=== PATIENT | male | born 1995 | race Caucasian/White ===

== ENCOUNTER 2022-02-06 14:55 | Observation (INO) | payer OTHER ==
--- NOTE | 2022-02-06 15:05 | ED ---
Chest Pain HPI - General Stated Complaint: chest pain Time Seen by Provider: 02/06/22 14:55 Source: patient, EMS, RN notes reviewed Mode of arrival: EMS - History of Present Illness Initial Comments: 18-year-old male with a history of tachycardia but no prior other history of heart disease but a family history of heart disease who prior to EMS being called by one hour earlier, patient developing retrosternal chest pressure 8/10 severity with radiation to his left arm. He tried to drive himself and but ended up calling EMS. He was given 324 aspirin one nitroglycerin the pain went from 88/10-2/10 currently he is pain-free. No other complaints or modifying factors he does smoke marijuana but no tobacco. MD Complaint: chest pain - Related Data Home Medications Medication Instructions Recorded Confirmed Montelukast [Singulair] 10 mg PO DAILY 02/06/22 02/06/22 hydrOXYzine HCL [Atarax] 25 mg PO DAILY 02/06/22 02/06/22 Allergies Allergy/AdvReac Type Severity Reaction Status Date / Time No Known Allergies Allergy Verified 02/06/22 15:49 Review of Systems ROS Statement: Those systems with pertinent positive or pertinent negative responses have been documented in the HPI. ROS Other: All systems not noted in ROS Statement are negative. General Exam - General Exam Comments Initial Comments: This is a well-developed sec appearing male who is awake alert oriented 4 General appearance: alert, in no apparent distress Head exam: Present: atraumatic, normocephalic, normal inspection Eye exam: Present: normal appearance, PERRL, EOMI. Absent: scleral icterus, conjunctival injection, periorbital swelling ENT exam: Present: normal exam, mucous membranes moist Neck exam: Present: normal inspection, full ROM, other (No stridor JVD or bruits). Absent: tenderness, meningismus, lymphadenopathy Respiratory exam: Present: normal lung sounds bilaterally. Absent: respiratory distress, wheezes, rales, rhonchi, stridor Cardiovascular Exam: Present: regular rate, normal rhythm, normal heart sounds. Absent: systolic murmur, diastolic murmur, rubs, gallop, clicks GI/Abdominal exam: Present: soft, normal bowel sounds. Absent: distended, tenderness, guarding, rebound, rigid Extremities exam: Present: normal inspection, full ROM, normal capillary refill. Absent: tenderness, pedal edema, joint swelling, calf tenderness Back exam: Present: normal inspection Neurological exam: Present: alert, oriented X3, CN II-XII intact Psychiatric exam: Present: normal affect, normal mood Skin exam: Present: warm, dry, intact, normal color. Absent: rash Course Vital Signs 02/06/22 02/06/22 14:57 16:08 Temperature 98.9 F 97.9 F Pulse Rate 61 65 Respiratory 16 16 Rate Blood Pressure 137/86 128/85 O2 Sat by Pulse 98 98 Oximetry - Reevaluation(s) Reevaluation #1: 02/06/22 17:29 Patient reevaluated by me and several occasions no progression of initial complaints Chest Pain MDM - MDM I did evaluate the imaging evidence of a proximal a temperature pneumothorax. This is confirmed by radiology. I did discuss findings with patient family members also with Dr. kristie Dougherty. Patient be admitted with consultation by cardiology as well as by a medicine. I did discuss the initial case with Isabel Schmidt working with Dr. Martin. At this time we will withhold tube thoracostomy Was pt. sent in by a medical professional or institution? @ No-[by , PA, PRESS FEEDER, urgent care, hospital, or long-term] Did you speak to anyone other than the patient for history? @ Yesterday did discuss the case with the presenting paramedics-[EMS, parent, family, police, friend?] Did you review nursing and triage notes? @ Yes I agree -[agree or disagree, why?] Were old charts reviewed? @ -[outside hosp., previous admissions, EMS record, old EKG, old radiological studies, urgent care reports/EKGs, long-term records?] Differential Diagnosis? @ Chest pain including coronary artery disease and pulmonary etiologies.-[chest pain, altered mental status abdominal pain women, abdominal pain men, vaginal bleeding, weakness, fever, dyspnea, syncope, headache, dizziness, GI bleed, back pain, seizure] EKG interpreted by me (3pts min.)? @ He has interpreted by me and interpreted by me left temporal sent approximately pneumothorax-[none] X-rays interpreted by me (1pt min.)? @ -[none] CT interpreted by me (1pt min.)? @ -[none] U/S interpreted by me (1pt. min.)? @ -[none] What testing was considered but not performed? (CT, X-rays, U/S, labs)? Why? @ [CT, X-rays, U/S, labs? Why?] What meds were considered but not given? Why? @ -[none] Did you discuss the management of the patient with other professionals? @ .-[professionals i.e. Dr, PA, PRESS FEEDER, Lab, RT, Psych Nurse, Gas Brazer, Polisher Brass, Teacher, Crop Farm Helper, director of casework department? Give summary] Did you reconcile home meds? @ -[none] Was smoking cessation discussed for >3mins.? @ -[none] Was critical care preformed (if so, how long)? @ -[none] Were there social determinants of health that impacted care today? How? (Homelessness, low income, unemployed, alcoholism, drug addiction, transportation, low edu. Level, literacy, decrease access to med. care, group home, rehab)? @ -[Homelessness, low income, unemployed, alcoholism, drug addiction, transportation, low edu. Level, literacy, decrease access to med. care, group home, rehab?] Was there de-escalation of care discussed even if they declined? (Discuss DNR or withdrawal of care, Hospice)? @ -[Discuss DNR or withdrawal of care, Hospice?] What co-morbidities impacted this encounter? (DM, HTN, Smoking, COPD, CAD, Cancer, CVA, Hep., AIDS, mental health diagnosis, sleep apnea, morbid obesity)? @ -[DM, HTN, Smoking, COPD, CAD, Cancer, CVA, Hep., AIDS, mental health diagnosis, sleep apnea, morbid obesity?] Was patient admitted / discharged? @ Patient was admitted for inpatient evaluation and treatment-[hospital course] Undiagnosed new problem with uncertain prognosis? @ Spontaneous pneumothorax-[none] Drug Therapy requiring intensive monitoring for toxicity (Heparin, Nitro, Insulin, Cardizem)? @ -[none] Were any procedures done? @ -[none] Diagnosis/symptom? @ Chest pain, 10% left pneumothorax-[default] Acute, or Chronic, or Acute on Chronic? @ -[default] Uncomplicated (without systemic symptoms) or Complicated (systemic symptoms)? @ -[default] Side effects of treatment? @ -[none] Exacerbation, Progression, or Severe Exacerbation] @ -[no] Poses a threat to life or bodily function? @ Potential threat to life-[no] Disposition Clinical Impression: Chest pain, Pneumothorax on left Disposition: ADMITTED IP TO THIS HOSP Condition: Fair Referrals: Dayana Manjarrez MD [Primary Care Provider] - 1-2 days Decision Date: 02/06/22 Decision Time: 17:33
[2022-02-06 15:45] LABS: ALT 41 U/L (4-49); AST 34 U/L (17-59); African American GFR (CKD) >90 (>60 ml/min/1.73 sqM); Albumin 4.6 g/dL (3.5-5.0); Alkaline Phosphatase 47 U/L (38-126); Anion Gap 6 mmol/L; Blood Urea Nitrogen 15 mg/dL (9-20); Calcium 9.2 mg/dL (8.4-10.2); Carbon Dioxide 27 mmol/L (22-30); Chloride 106 mmol/L (98-107); Glucose 99 mg/dL (74-99); Lipase 49 U/L (23-300); Magnesium 1.9 mg/dL (1.6-2.3); Non-African American GFR(CKD) >90 (>60 ml/min/1.73 sqM); Potassium 4.2 mmol/L (3.5-5.1); Sodium 139 mmol/L (137-145); Total Bilirubin 0.4 mg/dL (0.2-1.3); Total Protein 7.4 g/dL (6.3-8.2)
--- NOTE | 2022-02-06 15:47 | XR ---
EXAMINATION TYPE: XR chest 2V DATE OF EXAM: 02/06/2022 3:39 PM COMPARISON: None TECHNIQUE: XR chest 2V Frontal and lateral views of the chest. CLINICAL INDICATION:Male, 26 years old with history of Chest Pain; FINDINGS: Lungs/Pleura: No pleural effusion or focal consolidation. Small left apical pneumothorax measuring ap proximately 10%. Pulmonary vascularity: Unremarkable. Heart/mediastinum: Cardiomediastinal silhouette is unremarkable. Musculoskeletal: No acute osseous pathology. IMPRESSION: Small left apical pneumothorax measuring approximately 10%. Findings called to and discussed with Dr. John Whitt at 3:44 PM on 02/06/2022.
[2022-02-06 15:55] LABS: Basophils % (A) 1 %; Eosinophils # (A) 0.1 k/uL (0-0.7); Eosinophils % (A) 1 %; HCT 45.1 % (39.0-53.0); HGB 16.4 gm/dL (13.0-17.5); Lymphocytes # (A) 1.1 k/uL (1.0-4.8); Lymphocytes % (A) 12 %; MCH 31.5 pg (25.0-35.0); MCHC 36.3 g/dL (31.0-37.0); MCV 86.8 fL (80.0-100.0); Mean Platelet Volume 8.3; Monocytes # (A) 0.5 k/uL (0-1.0); Monocytes % (A) 5 %; Neutrophils # (A) 7.3 k/uL (1.3-7.7); Neutrophils % (A) 80 %; Platelet Count 175 k/uL (150-450); RBC 5.19 m/uL (4.30-5.90); RDW 12.2 % (11.5-15.5); WBC 9.1 k/uL (3.8-10.6)
[2022-02-06 16:15] LABS: Prothrombin Time 10.3 sec (9.0-12.0)
[2022-02-06] MEDS ORDERED: MORPHINE SULFATE 4 MG/ML SYRINGE IV PRN ×2 (17:34→18:12)
[2022-02-06] MEDS ORDERED: NITROGLYCERIN SL TABS 0.4 MG TAB SUBLINGUAL PRN (17:34)
[2022-02-06] MEDS ORDERED: ACETAMINOPHEN TAB 325 MG TAB PO PRN (17:34)
[2022-02-06] MEDS: SODIUM CHLORIDE 0.9% 1,000 ML IV SCH (17:58)
[2022-02-07] MEDS: SODIUM CHLORIDE 0.9% 1,000 ML IV SCH (06:49)
--- NOTE | 2022-02-07 07:14 | XR ---
EXAMINATION TYPE: XR chest 2V DATE OF EXAM: 02/07/2022 6:24 AM COMPARISON: Chest radiograph from one day prior. TECHNIQUE: XR chest 2V Frontal and lateral views of the chest. CLINICAL INDICATION:Male, 26 years old with history of Progress pneumothorax; FINDINGS: Lungs/Pleura: There is no evidence of pleural effusion, focal consolidation. There remains a small l eft pneumothorax. Pulmonary vascularity: Unremarkable. Heart/mediastinum: Cardiomediastinal silhouette is unremarkable. Musculoskeletal: No acute osseous pathology. IMPRESSION: Similar left pneumothorax.
[2022-02-07 07:40] VITALS: BP 119/70; RESP 18; TEMP 98
--- NOTE | 2022-02-07 08:39 | P.CRDCN ---
History of Present Illness Consult date: 02/07/22 Chief complaint: Chest pain History of present illness: The patient is a pleasant 26-year-old gentleman with a past medical history significant for history of "tachycardia", the patient was seen by a cattle killer service in the past but he has no follow-up with the last 3 years. He presented to the hospital complaining of chest discomfort. He described the discomfort as a sharp kind of discomfort in the middle of the chest he stated that is not related to breathing. No radiation to the arms or neck or shoulders or back. No associated symptoms. He underwent further investigation including an EKG and that showed sinus rhythm. He also underwent cardiac enzymes came in to be an unremarkable. The patient underwent a chest x-ray which showed small left pneumothorax. He was seen by the pulmonary service and the decision at this point to treat the patient conservatively. He is currently chest pain-free. From a cardiovascular standpoint of view, the patient potentially can be discharged home since he has been chest pain-free and will follow-up with the patient as an outpatient. Past Medical History Additional Past Medical History / Comment(s): tachycardia History of Any Multi-Drug Resistant Organisms: None Reported Past Surgical History: No Surgical Hx Reported Past Psychological History: No Psychological Hx Reported Smoking Status: Current every day smoker Past Alcohol Use History: None Reported Past Drug Use History: Marijuana Medications and Allergies Home Medications Medication Instructions Recorded Confirmed Type Montelukast [Singulair] 10 mg PO DAILY 02/06/22 02/06/22 History hydrOXYzine HCL [Atarax] 25 mg PO DAILY 02/06/22 02/06/22 History Allergies Allergy/AdvReac Type Severity Reaction Status Date / Time No Known Allergies Allergy Verified 02/06/22 15:49 Physical Exam Vitals: Vital Signs Temp Pulse Pulse Resp BP BP Pulse Ox 02/07/22 07:00 98 F 57 L 18 119/70 95 02/07/22 03:08 98.0 F 53 L 16 104/63 96 02/06/22 22:04 98.6 F 60 17 128/79 97 02/06/22 21:00 64 16 125/78 98 02/06/22 20:00 66 16 126/84 98 02/06/22 17:38 97.8 F 80 16 155/88 98 02/06/22 16:08 97.9 F 65 16 128/85 98 02/06/22 14:57 98.9 F 61 16 137/86 98 Intake and Output 02/06/22 02/07/22 02/07/22 22:59 06:59 14:59 Other: # Voids 1 1 Weight 86.183 kg - Constitutional General appearance: no acute distress - Respiratory Respiratory: bilateral: CTA - Cardiovascular Rhythm: regular Heart sounds: normal: S1, S2 Results 02/06/22 15:08 02/06/22 15:08 Cardiac Enzymes 02/06/22 02/06/22 02/06/22 Range/Units 15:08 15:08 17:50 AST 34 (17-59) U/L Troponin I <0.012 <0.012 (0.000-0.034) ng/mL 02/06/22 Range/Units 20:32 AST (17-59) U/L Troponin I <0.012 (0.000-0.034) ng/mL Coagulation 02/06/22 Range/Units 15:08 PT 10.3 (9.0-12.0) sec APTT 23.0 (22.0-30.0) sec CBC 02/06/22 Range/Units 15:08 WBC 9.1 (3.8-10.6) k/uL RBC 5.19 (4.30-5.90) m/uL Hgb 16.4 (13.0-17.5) gm/dL Hct 45.1 (39.0-53.0) % Plt Count 175 (150-450) k/uL Comprehensive Metabolic Panel 02/06/22 Range/Units 15:08 Sodium 139 (137-145) mmol/L Potassium 4.2 (3.5-5.1) mmol/L Chloride 106 (98-107) mmol/L Carbon Dioxide 27 (22-30) mmol/L BUN 15 (9-20) mg/dL Creatinine 0.78 (0.66-1.25) mg/dL Glucose 99 (74-99) mg/dL Calcium 9.2 (8.4-10.2) mg/dL AST 34 (17-59) U/L ALT 41 (4-49) U/L Alkaline Phosphatase 47 (38-126) U/L Total Protein 7.4 (6.3-8.2) g/dL Albumin 4.6 (3.5-5.0) g/dL Current Medications Generic Name Dose Route Start Last Admin Trade Name Freq PRN Reason Stop Dose Admin Acetaminophen 650 mg 02/06/22 17:34 Acetaminophen Tab 325 Mg Tab PO Q4HR PRN Mild Pain Aspirin 325 mg 02/07/22 09:00 Aspirin 325 Mg Tab PO DAILY SHERRY Sodium Chloride 1,000 mls @ 100 mls/hr 02/06/22 17:45 02/07/22 06:49 Saline 0.9% IV 100 mls/hr .Q10H SHERRY Administration Morphine Sulfate 4 mg 02/06/22 18:12 Morphine Sulfate 4 Mg/Ml Syringe IV Q4HR PRN Chest Pain Nitroglycerin 0.4 mg 02/06/22 17:34 Nitroglycerin Sl Tabs 0.4 Mg Tab SUBLINGUAL Q5M PRN Chest Pain Intake and Output 02/06/22 02/07/22 02/07/22 22:59 06:59 14:59 Other: # Voids 1 1 Weight 86.183 kg 02/06/22 15:08 02/06/22 15:08 Assessment and Plan Assessment: Assessment Atypical/noncardiac chest pain Small left pneumothorax Plan Acute coronary event was ruled out The patient can be discharged
[2022-02-07] MEDS ORDERED: ASPIRIN 325 MG TAB PO SCH (09:00)
--- NOTE | 2022-02-07 10:17 | P.HPIM ---
History of Present Illness Please consider this note as combined H&P and discharge summary This is a pleasant 26 years old male with no significant past medical history. Presents because of chest pain Patient presents because of chest pain started yesterday going to work, it was on the left side went to the left arm and left shoulder about 9/10 felt like dull, sharp and later on something sitting on her chest, no significantly resolved about one-to/10 in severity A piece once of dyspnea with it but not currently. No coughing, No GI or urinary complaints, no nausea vomiting diarrhea, no dysuria urgency, no headache weakness numbness or dizziness. Weight but denies cigarette smoking or alcohol use Vitals are stable and patient is afebrile. Labs aren't remarkable. Chest x-ray: Left pneumothorax, 10% EKG showing normal sinus rhythm at [address]-T changes Patient currently on aspirin 325 mg on normal saline at 100 mL per hour Review of Systems Review of systems CONSTITUTIONAL: No fever, no malaise, no fatigue. HEENT: No recent visual problems or hearing problems. Denied any sore throat. CARDIOVASCULAR: No orthopnea, PND, no palpitations, no syncope. PULMONARY: No shortness of breath, no cough, no hemoptysis. GASTROINTESTINAL: No diarrhea, no nausea, no vomiting, no abdominal pain. Normoactive bowel sounds. NEUROLOGICAL: No headaches, no weakness, no numbness. HEMATOLOGICAL: Denies any bleeding or petechiae. GENITOURINARY: Denies any burning micturition, frequency, or urgency. MUSCULOSKELETAL/RHEUMATOLOGICAL: Denies any joint pain, swelling, or any muscle pain. ENDOCRINE: Denies any polyuria or polydipsia. Past Medical History Additional Past Medical History / Comment(s): tachycardia History of Any Multi-Drug Resistant Organisms: None Reported Past Surgical History: No Surgical Hx Reported Past Psychological History: No Psychological Hx Reported Smoking Status: Current every day smoker Past Alcohol Use History: None Reported Past Drug Use History: Marijuana Medications and Allergies Home Medications Medication Instructions Recorded Confirmed Type Montelukast [Singulair] 10 mg PO DAILY 02/06/22 02/06/22 History hydrOXYzine HCL [Atarax] 25 mg PO DAILY 02/06/22 02/06/22 History Acetaminophen Tab [Tylenol] 650 mg PO Q4HR PRN tab 02/07/22 Rx Allergies Allergy/AdvReac Type Severity Reaction Status Date / Time No Known Allergies Allergy Verified 02/06/22 15:49 Physical Exam Vitals: Vital Signs Temp Pulse Pulse Resp BP BP Pulse Ox 02/07/22 07:00 98 F 57 L 18 119/70 95 02/07/22 03:08 98.0 F 53 L 16 104/63 96 02/06/22 22:04 98.6 F 60 17 128/79 97 02/06/22 21:00 64 16 125/78 98 02/06/22 20:00 66 16 126/84 98 02/06/22 17:38 97.8 F 80 16 155/88 98 02/06/22 16:08 97.9 F 65 16 128/85 98 02/06/22 14:57 98.9 F 61 16 137/86 98 Intake and Output 02/06/22 02/07/22 02/07/22 22:59 06:59 14:59 Intake Total 240 Balance 240 Intake: Oral 240 Other: # Voids 1 1 Weight 86.183 kg GENERAL: The patient is alert and oriented x3, not in any acute distress. Well developed, well nourished. HEENT: Pupils are round and equally reacting to light. EOMI. No scleral icterus. No conjunctival pallor. Normocephalic, atraumatic. No pharyngeal erythema. No thyromegaly. CARDIOVASCULAR: S1 and S2 present. No murmurs, rubs, or gallops. PULMONARY: Chest is clear to auscultation, no wheezing or crackles. ABDOMEN: Soft, nontender, nondistended, normoactive bowel sounds. No palpable organomegaly. MUSCULOSKELETAL: No joint swelling or deformity. EXTREMITIES: No cyanosis, clubbing, or pedal edema. NEUROLOGICAL: Gross neurological examination did not reveal any focal deficits. SKIN: No rashes. no petechiae. Results CBC & Chem 7: 02/06/22 15:08 02/06/22 15:08 Thrombosis Risk Factor Assmnt - Choose All That Apply Each Factor Represents 1 point: Obesity (BMI >25) Thrombosis Risk Factor Assessment Total Risk Factor Score: 1 Thrombosis Risk Factor Assessment Level: Low Risk Assessment and Plan Assessment: Chest pain secondary to pneumothorax, cardiac causes ruled out Left Pneumothorax Plan: Patient was cleared for discharge by pulmonary and cardiology service per staff. Patient feels better and he wants to go home. Patient was instructed to follow up with Dr. Martin on this coming Wednesday for repeat chest x-ray, patient agreeable. Patient was told the same thing by Dr. Martin. Patient was instructed to follow up with Dr. Montiel in one week after discharge and he agrees. per Dr. Montiel echocardiogram can be done as an outpatient and patient informed and agrees. No need for aspirin upon discharge Patient was instructed to follow up with his family physician Dr. Chamberlain in one week and he agrees Medically stable
[2022-02-07 10:18] VITALS: PULSE 48
--- NOTE | 2022-02-07 11:39 | P.CNPUL ---
History of Present Illness Consult date: 02/07/22 Requesting physician: Milo Angel Reason for consult: dyspnea, chest pain, pneumothorax, abnormal CXR/CT Chief complaint: Shortness of breath/chest pain. History of present illness: Pulmonary consult dated 02/07/2022. 26-year-old male who was seen in the emergency department yesterday for chest pain and shortness of breath. These 2 symptoms came on suddenly. He was brought into the emergency room by EMS. They gave him aspirin, and nitroglycerin prior to coming to the emergency department. On evaluation in the emergency department, he was found to have a temper sent pneumothorax on the left. This represents a spontaneous idiopathic pneumothorax. The patient does smoke marijuana, not cigarettes. His only other medical problems are ALLERGIES. The patient's chest x-ray shows a temper sent pneumothorax on the left. Today's chest x-ray is unchanged. I told the patient that he could be discharged home, to follow with me in the office, on Wednesday morning at 8:30 for a follow-up chest x-ray. I also mentioned to him that should he have worsening shortness of breath or chest pain, he should come back into the emergency department. CBC is normal. Coagulation studies are normal. Electrolyte profile/comprehensive metabolic profile is completely normal. Chest x-rays are reviewed. Review of Systems REVIEW OF SYSTEMS: CONSTITUTIONAL: [Negative.] NEUROLOGIC: [ Negative.] HEENT: [ Negative.] CARDIAC: Chest pain. PULMONARY: Shortness of breath. GI: [Negative.] : [Negative.] RHEUMATOLOGIC: [ Negative.] IMMUNOLOGIC: [ Negative.] ENDOCRINE: [Negative. ] DERMATOLOGIC: [Negative.] Past Medical History Additional Past Medical History / Comment(s): tachycardia History of Any Multi-Drug Resistant Organisms: None Reported Past Surgical History: No Surgical Hx Reported Past Psychological History: No Psychological Hx Reported Smoking Status: Current every day smoker Past Alcohol Use History: None Reported Past Drug Use History: Marijuana Medications and Allergies Home Medications Medication Instructions Recorded Confirmed Type Montelukast [Singulair] 10 mg PO DAILY 02/06/22 02/06/22 History hydrOXYzine HCL [Atarax] 25 mg PO DAILY 02/06/22 02/06/22 History Acetaminophen Tab [Tylenol] 650 mg PO Q4HR PRN tab 02/07/22 Rx Allergies Allergy/AdvReac Type Severity Reaction Status Date / Time No Known Allergies Allergy Verified 02/06/22 15:49 Physical Exam Osteopathic Statement: *. No significant issues noted on an osteopathic structural exam other than those noted in the History and Physical/Consult. Vitals: Vital Signs Temp Pulse Pulse Pulse Resp BP BP 02/07/22 08:00 48 L 02/07/22 07:00 98 F 57 L 18 119/70 02/07/22 03:08 98.0 F 53 L 16 104/63 02/06/22 22:04 98.6 F 60 17 128/79 02/06/22 21:00 64 16 125/78 02/06/22 20:00 66 16 126/84 02/06/22 17:38 97.8 F 80 16 155/88 02/06/22 16:08 97.9 F 65 16 128/85 02/06/22 14:57 98.9 F 61 16 137/86 Pulse Ox 02/07/22 08:00 02/07/22 07:00 95 02/07/22 03:08 96 02/06/22 22:04 97 02/06/22 21:00 98 02/06/22 20:00 98 02/06/22 17:38 98 02/06/22 16:08 98 02/06/22 14:57 98 Intake and Output 02/06/22 02/07/22 02/07/22 22:59 06:59 14:59 Intake Total 240 Balance 240 Intake: Oral 240 Other: # Voids 1 1 Weight 86.183 kg No acute distress, oriented 3. No respiratory distress or difficulty. HEENT examination is grossly unremarkable. Mucous membranes are moist. No oral lesions. Neck supple. Full range of motion. No adenopathy thyromegaly or neck vein distention. Cardiovascular examination reveals regular rhythm rate. S1-S2 normal. No S3 or S4. No discernible murmur noted. Heart rate is 57 bpm. Lungs reveal clear breath sounds. Breath sounds are equal bilaterally. No adventitious lung sounds including wheezes rhonchi or crackles. Abdomen soft bowel sounds are heard. No masses or tenderness. Extremities are intact. No cyanosis clubbing or edema. Skin is without rash or lesion. Neurologic examination is brief but nonfocal. Results - Laboratory Findings CBC and BMP: 02/06/22 15:08 02/06/22 15:08 PT/INR, D-dimer PT 10.3 sec (9.0-12.0) 02/06/22 15:08 INR 1.0 (<1.2) 02/06/22 15:08 D-Dimer 0.20 mg/L FEU (<0.60) 02/06/22 15:08 - Diagnostic Findings Chest x-ray: image reviewed Assessment and Plan Assessment: Acute idiopathic spontaneous left-sided pneumothorax. History of marijuana use. History of ALLERGIES. Plan: Plan dated 02/07/2022. In my opinion, the patient could be discharged home. He is told not to smoke, and not to lift anything heavy. In addition, we mentioned to him that should he develop worsening shortness of breath or chest pain, he should come back into the emergency room. We have made provisions for him to see me on Wednesday morning, at 8:30, in the office. At that time, he will have a chest x-ray. Additional recommendations and suggestions are forthcoming. Time with Patient: Greater than 30
[2022-02-07 12:57] LABS: Chol/HDL Ratio 2.76 Ratio; LDL Cholesterol,Calculated 102.1 mg/dL (0.0-131.0); VLDL Calculation 17.14 mg/dL (5.00-40.00)
== END 2022-02-07 11:46 | disposition home or self-care (01) ==
LOC: EC 14:55 → 6NMEDSUR 17:40
PROVIDERS: ADMIT Internal Medicine; ATTEND Internal Medicine
DX: J93.83 Other pneumothorax (principal); F12.90 Cannabis use, unspecified, uncomplicated; F17.200 Nicotine dependence, unspecified, uncomplicated; Z82.49 Family history of ischemic heart disease and other diseases of the circulatory system; Z79.899 Other long term (current) drug therapy
CPT/HCPCS: 99285; 36415; 93005; 85379; 83880; 80061; 80053; 83690; 83735; 84484; 85025; 85610; 85730; 71046 ×2; G0378 ×2

== ENCOUNTER 2022-02-08 21:06 | Emergency (ER) | payer OTHER ==
[2022-02-08 21:13] VITALS: TEMP 98.1
[2022-02-08] MEDS ORDERED: SODIUM CHLORIDE 0.9% 1,000 ML IV STA (21:23)
[2022-02-08 21:46] LABS: Basophils # (A) 0.1 k/uL (0-0.2); Basophils % (A) 1 %; Eosinophils # (A) 0.2 k/uL (0-0.7); Eosinophils % (A) 2 %; HCT 45.6 % (39.0-53.0); HGB 15.3 gm/dL (13.0-17.5); Lymphocytes # (A) 1.8 k/uL (1.0-4.8); Lymphocytes % (A) 20 %; MCH 28.7 pg (25.0-35.0); MCHC 33.5 g/dL (31.0-37.0); MCV 85.6 fL (80.0-100.0); Monocytes # (A) 0.5 k/uL (0-1.0); Monocytes % (A) 5 %; Neutrophils # (A) 6.5 k/uL (1.3-7.7); Neutrophils % (A) 71 %; Platelet Count 188 k/uL (150-450); RBC 5.33 m/uL (4.30-5.90); RDW 11.7 % (11.5-15.5); WBC 9.1 k/uL (3.8-10.6)
[2022-02-08 21:55] LABS: Partial Thromboplastin Time 22.5 sec (22.0-30.0); Prothrombin Time 10.5 sec (9.0-12.0)
[2022-02-08 22:09] LABS: ALT 37 U/L (4-49); AST 33 U/L (17-59); African American GFR (CKD) >90 (>60 ml/min/1.73 sqM); Albumin 4.7 g/dL (3.5-5.0); Alkaline Phosphatase 48 U/L (38-126); Anion Gap 10 mmol/L; Blood Urea Nitrogen 18 mg/dL (9-20); Calcium 9.3 mg/dL (8.4-10.2); Carbon Dioxide 22 mmol/L (22-30); Chloride 106 mmol/L (98-107); Glucose 95 mg/dL (74-99); Non-African American GFR(CKD) >90 (>60 ml/min/1.73 sqM); Potassium 3.6 mmol/L (3.5-5.1); Sodium 138 mmol/L (137-145); Total Bilirubin 0.7 mg/dL (0.2-1.3); Total Protein 7.7 g/dL (6.3-8.2)
[2022-02-08] MEDS ORDERED: KETOROLAC 15 MG/ML 1 ML VIAL IVP STA (22:15)
--- NOTE | 2022-02-08 22:24 | XR ---
EXAMINATION TYPE: XR chest 2V DATE OF EXAM: 02/08/2022 COMPARISON: NONE HISTORY: Follow-up pneumothorax TECHNIQUE: 2 views FINDINGS: There is left-sided pneumothorax approximately 40% and slightly increased compared to exam this morning. No evidence of tension. Trachea is midline. The right lung is clear. No pleural effusio n. IMPRESSION: There is left-sided pneumothorax slightly increased compared to recent exam.
--- NOTE | 2022-02-08 22:45 | ED ---
SOB HPI - General Chief Complaint: Shortness of Breath Stated Complaint: SOB Time Seen by Provider: 02/08/22 21:17 Source: patient Mode of arrival: wheelchair - History of Present Illness Initial Comments: Patient is a 26-year-old male who presents to the emergency department with a chief complaint of shortness of breath. Patient was admitted from 02/06/22- 02/07/22 for similar symptoms where he was diagnosed with a 10% pneumothorax on the left. He was evaluated by cardiology and pulmonology where he was managed conservatively. Pneumothorax was found to be spontaneous idiopathic. Patient is a non-tobacco user although does smoke marijuana. After unchanged x-ray on 02/07 along with the symptoms, patient was discharged home with appointment to follow-up with Dr. Mratin in the office for repeat x-ray on Wednesday. Patient woke up today with worsening of shortness of breath. He also has increased chest pain. Describes it as a dull left-sided chest pain with intermittent sharp substernal pain. States it usually feels better if he lays on a side however today this did not improve pain which brought him to the emergency department. Patient also reports chills throughout the day today. Has not taken temperature at home. Denies upper respiratory symptoms, cough. - Related Data Home Medications Medication Instructions Recorded Confirmed Montelukast [Singulair] 10 mg PO DAILY 02/06/22 02/06/22 hydrOXYzine HCL [Atarax] 25 mg PO DAILY 02/06/22 02/06/22 Previous Rx's Medication Instructions Recorded Acetaminophen Tab [Tylenol] 650 mg PO Q4HR PRN tab 02/07/22 Ibuprofen [Motrin] 800 mg PO Q8H PRN #30 tab 02/08/22 Allergies Allergy/AdvReac Type Severity Reaction Status Date / Time No Known Allergies Allergy Verified 02/08/22 21:13 Review of Systems ROS Statement: Those systems with pertinent positive or pertinent negative responses have been documented in the HPI. ROS Other: All systems not noted in ROS Statement are negative. Past Medical History Additional Past Medical History / Comment(s): tachycardia History of Any Multi-Drug Resistant Organisms: None Reported Past Surgical History: No Surgical Hx Reported Past Psychological History: No Psychological Hx Reported Smoking Status: Current every day smoker Past Alcohol Use History: None Reported Past Drug Use History: Marijuana General Exam General appearance: alert, in no apparent distress Eye exam: Present: normal appearance, PERRL, EOMI. Absent: scleral icterus, conjunctival injection, periorbital swelling Respiratory exam: Present: normal lung sounds bilaterally. Absent: respiratory distress, wheezes, rales, rhonchi, stridor, chest wall tenderness Cardiovascular Exam: Present: regular rate, normal rhythm, normal heart sounds. Absent: systolic murmur, diastolic murmur, rubs, gallop, clicks Neurological exam: Present: alert, oriented X3, CN II-XII intact Psychiatric exam: Present: normal affect, normal mood Skin exam: Present: warm, dry, intact, normal color. Absent: rash Course Vital Signs 02/08/22 21:08 Temperature 98.1 F Pulse Rate 62 Respiratory 18 Rate Blood Pressure 130/81 O2 Sat by Pulse 96 Oximetry Medical Decision Making - Medical Decision Making Was pt. sent in by a medical professional or institution? No Did you speak to anyone other than the patient for history? No Did you review nursing and triage notes? Yes, and I agree. Symptoms consistent with nursing and triage notes. Were old charts reviewed? Yes, patient recently admitted for left pneumothorax. Differential Diagnosis? Left pneumothorax, pneumonia, URI EKG interpreted by me (3pts min.)? If, normal sinus rhythm without ST segment or T-wave none. Ventricular rate 60, VA interval 128, QRS duration 82, QTC 398 X-rays interpreted by me (1pt min.)? Yes, showing left-sided pneumothorax increased to approximately 40% CT interpreted by me (1pt min.)? @ -[none] U/S interpreted by me (1pt. min.)? NA What testing was considered but not performed? (CT, X-rays, U/S, labs)? Why? None What meds were considered but not given? Why? None Did you discuss the management of the patient with other professionals? No Did you reconcile home meds? Was smoking cessation discussed for >3mins.? I discussed smoking cessation for greater than 3 minutes. The risk of smoking were discussed with the patient including but not limited to risks of cancer, stroke, coronary artery disease and COPD. Also discussed with patient were multiple methods of quitting smoking. Lastly we discussed the financial cost of smoking. Was critical care preformed (if so, how long)? No Were there social determinants of health that impacted care today? How? (Homelessness, low income, unemployed, alcoholism, drug addiction, transportation, low edu. Level, literacy, decrease access to med. care, snf, rehab)? No Was there de-escalation of care discussed even if they declined? (Discuss DNR or withdrawal of care, Hospice)? No What co-morbidities impacted this encounter? (DM, HTN, Smoking, COPD, CAD, Canc er, CVA, Hep., AIDS, mental health diagnosis, sleep apnea, morbid obesity)? Smoking Was patient admitted / discharged? This is a 26 -year-old male presenting with worsening shortness of breath and chest pain after recent admission for left pneumothorax. Patient resting comfortably with no evidence of respiratory distress. Vitals within normal limits. EKG shows normal sinus rhythm without ST or T-wave abnormality. Troponin within normal limits. X-ray shows slightly increased left-sided pneumothorax. CT chest without angio shows < 20% left pneumothorax, no evidence of tension. Results discussed with patient and family. Patient is well- appearing, despite increased pain, pain is mild, no increased work of breathing, normal vital signs. No intervention at this time. Patient will be discharged with strict return parameters. He is to follow-up with Dr. Martin tomorrow. Undiagnosed new problem with uncertain prognosis? NA Drug Therapy requiring intensive monitoring for toxicity (Heparin, Nitro, Insulin, Cardizem)? No Were any procedures done? No Diagnosis/symptom? Left pneumothorax Acute, or Chronic, or Acute on Chronic? Acute Uncomplicated (without systemic symptoms) or Complicated (systemic symptoms)? NA Side effects of treatment? No Exacerbation, Progression, or Severe Exacerbation] Progression Poses a threat to life or bodily function? Not currently Dr. Rivera is my attending. - Lab Data Result diagrams: 02/08/22 21:33 02/08/22 21:33 Lab Results 02/08/22 02/08/22 02/08/22 Range/Units 21:33 21:33 21:33 WBC 9.1 (3.8-10.6) k/uL RBC 5.33 (4.30-5.90) m/uL Hgb 15.3 (13.0-17.5) gm/dL Hct 45.6 (39.0-53.0) % MCV 85.6 (80.0-100.0) fL MCH 28.7 (25.0-35.0) pg MCHC 33.5 (31.0-37.0) g/dL RDW 11.7 (11.5-15.5) % Plt Count 188 (150-450) k/uL MPV 8.0 Neutrophils % 71 % Lymphocytes % 20 % Monocytes % 5 % Eosinophils % 2 % Basophils % 1 % Neutrophils # 6.5 (1.3-7.7) k/uL Lymphocytes # 1.8 (1.0-4.8) k/uL Monocytes # 0.5 (0-1.0) k/uL Eosinophils # 0.2 (0-0.7) k/uL Basophils # 0.1 (0-0.2) k/uL PT 10.5 (9.0-12.0) sec INR 1.0 (<1.2) APTT 22.5 (22.0-30.0) sec Sodium 138 (137-145) mmol/L Potassium 3.6 (3.5-5.1) mmol/L Chloride 106 (98-107) mmol/L Carbon Dioxide 22 (22-30) mmol/L Anion Gap 10 mmol/L BUN 18 (9-20) mg/dL Creatinine 0.78 (0.66-1.25) mg/dL Est GFR (CKD-EPI)AfAm >90 (>60 ml/min/1.73 sqM) Est GFR (CKD-EPI)NonAf >90 (>60 ml/min/1.73 sqM) Glucose 95 (74-99) mg/dL Plasma Lactic Acid Rene (0.7-2.0) mmol/L Calcium 9.3 (8.4-10.2) mg/dL Total Bilirubin 0.7 (0.2-1.3) mg/dL AST 33 (17-59) U/L ALT 37 (4-49) U/L Alkaline Phosphatase 48 (38-126) U/L Troponin I (0.000-0.034) ng/mL Total Protein 7.7 (6.3-8.2) g/dL Albumin 4.7 (3.5-5.0) g/dL Influenza Type A (PCR) (Not Detectd) Influenza Type B (PCR) (Not Detectd) RSV (PCR) (Not Detectd) SARS-CoV-2 (PCR) (Not Detectd) 02/08/22 02/08/22 02/08/22 Range/Units 21:33 21:33 21:56 WBC (3.8-10.6) k/uL RBC (4.30-5.90) m/uL Hgb (13.0-17.5) gm/dL Hct (39.0-53.0) % MCV (80.0-100.0) fL MCH (25.0-35.0) pg MCHC (31.0-37.0) g/dL RDW (11.5-15.5) % Plt Count (150-450) k/uL MPV Neutrophils % % Lymphocytes % % Monocytes % % Eosinophils % % Basophils % % Neutrophils # (1.3-7.7) k/uL Lymphocytes # (1.0-4.8) k/uL Monocytes # (0-1.0) k/uL Eosinophils # (0-0.7) k/uL Basophils # (0-0.2) k/uL PT (9.0-12.0) sec INR (<1.2) APTT (22.0-30.0) sec Sodium (137-145) mmol/L Potassium (3.5-5.1) mmol/L Chloride (98-107) mmol/L Carbon Dioxide (22-30) mmol/L Anion Gap mmol/L BUN (9-20) mg/dL Creatinine (0.66-1.25) mg/dL Est GFR (CKD-EPI)AfAm (>60 ml/min/1.73 sqM) Est GFR (CKD-EPI)NonAf (>60 ml/min/1.73 sqM) Glucose (74-99) mg/dL Plasma Lactic Acid Rene 1.1 (0.7-2.0) mmol/L Calcium (8.4-10.2) mg/dL Total Bilirubin (0.2-1.3) mg/dL AST (17-59) U/L ALT (4-49) U/L Alkaline Phosphatase (38-126) U/L Troponin I <0.012 (0.000-0.034) ng/mL Total Protein (6.3-8.2) g/dL Albumin (3.5-5.0) g/dL Influenza Type A (PCR) Not Detected (Not Detectd) Influenza Type B (PCR) Not Detected (Not Detectd) RSV (PCR) Not Detected (Not Detectd) SARS-CoV-2 (PCR) Not Detected (Not Detectd) Disposition Clinical Impression: Shortness of breath, Chest pain, Pneumothorax on left Disposition: HOME SELF-CARE Condition: Stable Instructions (If sedation given, give patient instructions): Spontaneous Pneumothorax (ED) Additional Instructions: Take medication as directed. Follow-up with Dr. Martin in the morning. Return to the ED if you experience new, worsening, or concerning symptoms. Prescriptions: Ibuprofen [Motrin] 800 mg PO Q8H PRN #30 tab PRN Reason: Pain Is patient prescribed a controlled substance at d/c from ED?: No Referrals: Dayana Manjarrez MD [Primary Care Provider] - 1-2 days Time of Disposition: 23:15
--- NOTE | 2022-02-08 22:56 | CT ---
EXAMINATION TYPE: CT chest wo con DATE OF EXAM: 02/08/2022 COMPARISON: None HISTORY: SOB Hx of left pneumothorax CT DLP: 355.3 mGycm Automated exposure control for dose reduction was used. Images obtained from the thoracic inlet to the diaphragm with no contrast. The lungs are clear of infiltrate. No pleural effusion. There is left side pneumothorax which is less than 20%. The lungs are clear of infiltrate. No mediastinal adenopathy. There are no hilar masses. Heart size i s normal. No pericardial effusion. The thoracic spine is intact. No compression fracture. Sternum is intact. The ribs are intact. The up per abdominal soft tissues are intact. IMPRESSION: There is small left-sided pneumothorax which is less than 20%. No suspicious pulmonary mass. No evide nce of tension.
[2022-02-08] MEDS ORDERED: IBUPROFEN 600 MG STARTER PACK 4 TAB BTL PO STA (23:14)
[2022-02-08 23:21] VITALS: BP 128/77; PULSE 78; RESP 15
== END 2022-02-08 23:24 | disposition home or self-care (01) ==
LOC: EC 21:06
DX: J93.9 Pneumothorax, unspecified (principal); F17.200 Nicotine dependence, unspecified, uncomplicated; F12.90 Cannabis use, unspecified, uncomplicated; Z20.822 Contact with and (suspected) exposure to COVID-19
CPT/HCPCS: 99285 ×2; 96374 ×2; 96361 ×2; 36415; 93005; 80053; 83605; 84484; 85025; 85610; 85730; 87636; 71046; 71250; J1885

== ENCOUNTER 2022-02-11 15:44 | Inpatient (IN) | payer OTHER ==
--- NOTE | 2022-02-11 20:13 | XR ---
EXAMINATION TYPE: XR chest 2V DATE OF EXAM: 02/11/2022 COMPARISON: Chest CT 3 days ago HISTORY: Left sided chest pain. History of pneumothorax. TECHNIQUE: Frontal and lateral views of the chest are obtained. FINDINGS: There is persistent small left-sided pneumothorax estimated 15% slightly improved from rec ent chest x-ray. Right lung remains clear. No mediastinal shift. The cardiac silhouette size is stabl e and within normal limits. The osseous structures are intact. IMPRESSION: Small left-sided pneumothorax estimated 15% improved from 3 days earlier.
[2022-02-12] MEDS ORDERED: NALOXONE 0.4 MG/ML 1 ML VIAL IV PRN (00:38)
[2022-02-12] MEDS ORDERED: MIDAZOLAM 1 MG/ML 5 ML VIAL IV STA (00:46)
[2022-02-12] MEDS ORDERED: KETOROLAC 15 MG/ML 1 ML VIAL IVP STA (01:04)
--- NOTE | 2022-02-12 01:07 | ED ---
General Adult HPI - General Chief complaint: Recheck/Abnormal Lab/Rx Stated complaint: revisit - collapsed lung Time Seen by Provider: 02/11/22 19:00 Source: patient Mode of arrival: ambulatory Limitations: no limitations - History of Present Illness Initial comments: This is a 26-year-old male with no past medical history presents to the [facility] department for a spontaneous pneumothorax. The patient had been previously seen in the emergency department and was admitted for a pneumothorax and was sent home without any chest tube placement. The patient was seen in the office by Dr. Martin who recommended that the patient presents emergency department for a chest tube placement as the patient's pneumothorax was consistent. The patient had some increasing shortness of breath earlier today and came to the emergency department for the chest tube placement per pathologist patient was resting comfortably without any further acute pain or distress noted. - Related Data Home Medications Medication Instructions Recorded Confirmed Montelukast [Singulair] 10 mg PO DAILY 02/06/22 02/11/22 hydrOXYzine HCL [Atarax] 25 mg PO DAILY 02/06/22 02/11/22 Previous Rx's Medication Instructions Recorded Acetaminophen Tab [Tylenol] 650 mg PO Q4HR PRN tab 02/07/22 Ibuprofen [Motrin] 800 mg PO Q8H PRN #30 tab 02/08/22 Allergies Allergy/AdvReac Type Severity Reaction Status Date / Time No Known Allergies Allergy Verified 02/11/22 19:54 Review of Systems ROS Statement: Those systems with pertinent positive or pertinent negative responses have been documented in the HPI. ROS Other: All systems not noted in ROS Statement are negative. Past Medical History Additional Past Medical History / Comment(s): tachycardia, collpased lung History of Any Multi-Drug Resistant Organisms: None Reported Past Surgical History: No Surgical Hx Reported Past Psychological History: No Psychological Hx Reported Smoking Status: Current every day smoker Past Alcohol Use History: None Reported Past Drug Use History: Marijuana General Exam Limitations: no limitations General appearance: alert, in no apparent distress Head exam: Present: atraumatic, normocephalic Eye exam: Present: normal appearance, PERRL Pupils: Present: normal accommodation ENT exam: Present: normal exam, mucous membranes moist Neck exam: Present: normal inspection, full ROM Respiratory exam: Present: normal lung sounds bilaterally Cardiovascular Exam: Present: regular rate, normal rhythm, normal heart sounds GI/Abdominal exam: Present: soft, normal bowel sounds Extremities exam: Present: normal inspection, full ROM Back exam: Present: normal inspection, full ROM Neurological exam: Present: alert, oriented X3, CN II-XII intact Psychiatric exam: Present: normal affect, normal mood Skin exam: Present: warm, dry Course Vital Signs 02/11/22 02/11/22 16:05 20:47 Temperature 98.2 F 97.7 F Pulse Rate 67 61 Respiratory 20 18 Rate Blood Pressure 138/86 124/82 O2 Sat by Pulse 98 98 Oximetry Procedures - Chest Tube Insertion Consent Obtained: written consent Side of Procedure: left Indication: Pneumothorax Placed on monitor/pulse oximetry: Yes Site Prep: Chloroprep, Sterile Drape Applied Local Anesthesia: Lidocaine 1% Amount (mLs): 5 Insertion Site: Other (Midclavicular 2nd intercostal) Scalpel: #10 Open into Pleural Space Using: Trocar (Thoravent kit) Returns: Air Sutured in Place: No (Thoravent chamber) Attached to Suction: Yes (Low intermittent suction) Patient Tolerated Procedure: well Medical Decision Making - Medical Decision Making Was pt. sent in by a medical professional or institution (, PA, [employer], urgent care, hospital, or custodial...) When possible be specific @ -Yes, Dr. Martin from his office Did you speak to anyone other than the patient for history (EMS, parent, family, police, friend...)? What history was obtained from this source @ -No Did you review nursing and triage notes (agree or disagree)? Why? @ -I reviewed and agree with nursing and triage notes Were old charts reviewed (outside hosp., previous admission, EMS record, old EKG, old radiological studies, urgent care reports/EKG's, custodial records)? Report findings @ -No old charts were reviewed Differential Diagnosis (chest pain, altered mental status, abdominal pain women, abdominal pain men, vaginal bleeding, weakness, fever, dyspnea, syncope, headache, dizziness, GI bleed, back pain, seizure, CVA, palpatations, mental health)? @ -Worsening pneumothorax, ACS EKG interpreted by me (3pts min.). @ -None X-rays interpreted by me (1pt min.). @ -Chest x-ray was interpreted by myself and showed a pneumothorax of less than 15% that was reportedly improving since his evaluation [address] interpreted by me (1pt min.). @ -None done U/S interpreted by me (1pt. min.). @ -None done What testing was considered but not performed or refused? (CT, X-rays, U/S, labs)? Why? @ -None What meds were considered but not given or refused? Why? @ -None Did you discuss the management of the patient with other professionals (professionals i.e. Dr., PA, [employer], lab, RT, psych nurse, social media strategist, scene shifter, teacher, sports development officer, high risk case manager)? Give summary @ -Yes, the counter stacker on-call, Dr. Mujica Was smoking cessation discussed for >3mins.? @ -No Was critical care preformed (if so, how long)? @ -No Were there social determinants of health that impacted care today? How? (Homelessness, low income, unemployed, alcoholism, drug addiction, transportation, low edu. Level, literacy, decrease access to med. care, half-way, rehab)? @ -No Was there de-escalation of care discussed even if they declined (Discuss DNR or withdrawal of care, Hospice)? DNR status @ -No What co-morbidities impacted this encounter? (DM, HTN, Smoking, COPD, CAD, Cancer, CVA, ARF, Chemo, Hep., AIDS, mental health diagnosis, sleep apnea, morbid obesity)? @ -None Was patient admitted / discharged? Hospital course, mention meds given and route, prescriptions, significant lab abnormalities, going to OR and other pertinent info. @ -This was seen and evaluated emergency department. Physical exam, the patient was resting in bed without any acute distress. Vital signs admission were stable. The patient's chest x-ray did show less than 50% pneumothorax on the left side that was improved from the previous evaluation. It was discussed with the on-call counter stacker that the patient could be possibly discharged home as the new with Rx was improving and he did agree with this. However, when I went to evaluate the patient and tell him of this plan, he was concerned and wanted to have the chest tube in place as he stated he had been missing work and did not want to miss further days of work. 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 Because of this, the patient did have a poor been placed but there was a delay for this procedure secondary to multiple critical patients. The patient had the procedure performed and tolerated it well. The patient was admitted to his primary care physician in stable condition. The patient's primary care physician was being covered by Dr. Murphy and he accepted at 0036. Undiagnosednew problem with uncertain prognosis? @ -No Drug Therapy requiring intensive monitoring for toxicity (Heparin, Nitro, Insulin, Cardizem)? @ -No Were any procedures done? @ -No Diagnosis/symptom? @ -Spontaneous pneumothorax status post Thoravent Acute, or Chronic, or Acute on Chronic? @ -Acute on chronic Uncomplicated (without systemic symptoms) or Complicated (systemic symptoms)? @ -default Side effects of treatment? @ -No Exacerbation, Progression, or Severe Exacerbation? @ -No Poses a threat to life or bodily function? How? (Chest pain, [place], [place], pneumonia, PE, COPD, DKA, ARF, appy, cholecystitis, CVA, Diverticulitis, Homicidal, Suicidal, threat to staff... and all critical care pts) @ -No Disposition Clinical Impression: Spontaneous pneumothorax Disposition: ADMITTED IP TO THIS [facility] Condition: Stable Referrals: Dayana Manjarrez MD [Primary Care Provider] - 1-2 days Time of Disposition: 00:36 Decision to Admit Reason: Admit from EC Decision Date: 02/12/22 Decision Time: 00:36
--- NOTE | 2022-02-12 01:31 | XR ---
EXAMINATION TYPE: XR chest 1V confirm line [facility] DATE OF EXAM: 02/12/2022 COMPARISON: NONE HISTORY: Follow-up pneumothorax TECHNIQUE: 2 views FINDINGS: There is a left-sided chest tube. There is a small left-sided pneumothorax approximately 25 % and slightly improved compared to exam 5 hours ago. Heart is normal. IMPRESSION: Slight improvement in the left-sided pneumothorax.
[2022-02-12] MEDS: HYDROcodone/APAP 5-325MG 1 EACH TAB PO PRN ×4 (03:51→23:46)
[2022-02-12] MEDS ORDERED: ACETAMINOPHEN TAB 325 MG TAB PO PRN (08:51)
--- NOTE | 2022-02-12 09:00 | P.CNPUL ---
History of Present Illness Consult date: 02/12/22 Reason for consult: pneumothorax History of present illness: On a 26-year-old male patient was currently admitted for a left-sided pneumothorax. The patient was in the hospital on 02/07/2022 for a spontaneous pneumothorax and another that time he had chest pain and shortness of breath. At that time, he had around 20-30% pneumothorax on the left. It was decided to leave it alone and the patient was hemodynamic is stable and the patient was discharged home. Subsequently, he was seen in our office and the pneumothorax was unchanged and he was sent again to the hospital and in the emergency department. Thoravent was inserted successfully. I reviewed the follow-up chest x-ray and the pneumothorax on the left has obviously dropped in size and there is a small left apical pneumothorax in place. He is still having some air leak through the thoravent and I'm going to attach it to the pleural VAC and wall suction for the next 24 hours. Hemodynamically stable. Clinically stable. No new complaints otherwise. This is the first bottle pneumothorax and he hasn't had any episodes in the past. He does not smoke tobacco. He smokes marijuana. No vague pink. No trauma to the chest. He is otherwise healthy. Review of Systems All systems: negative (Some limited shortness of breath and pain at the site of the chest tube insertion) Past Medical History Additional Past Medical History / Comment(s): pneumothorax History of Any Multi-Drug Resistant Organisms: None Reported Past Surgical History: No Surgical Hx Reported Past Anesthesia/Blood Transfusion Reactions: No Reported Reaction Past Psychological History: No Psychological Hx Reported Smoking Status: Former smoker Past Alcohol Use History: None Reported Past Drug Use History: Marijuana Additional Drug Use History / Comment(s): current everday marijuana smoker - Past Family History Sister(s) Additional Family Medical History / Comment(s): tachycardia Medications and Allergies Home Medications Medication Instructions Recorded Confirmed Type Montelukast [Singulair] 10 mg PO DAILY 02/06/22 02/11/22 History hydrOXYzine HCL [Atarax] 25 mg PO DAILY 02/06/22 02/11/22 History Acetaminophen Tab [Tylenol] 650 mg PO Q4HR PRN tab 02/07/22 02/11/22 Rx Ibuprofen [Motrin] 800 mg PO Q8H PRN #30 tab 02/08/22 02/11/22 Rx Allergies Allergy/AdvReac Type Severity Reaction Status Date / Time No Known Allergies Allergy Verified 02/11/22 19:54 Physical Exam Vitals: Vital Signs Temp Pulse Pulse Resp BP BP Pulse Ox 02/12/22 02:36 98.1 F 73 18 130/84 99 02/12/22 02:01 70 16 121/74 97 02/12/22 01:01 98.6 F 75 16 130/94 96 02/11/22 20:47 97.7 F 61 18 124/82 98 02/11/22 16:05 98.2 F 67 20 138/86 98 Intake and Output 02/11/22 02/12/22 02/12/22 22:59 06:59 14:59 Intake Total 540 Output Total 0 Balance 540 Intake: Oral 540 Output: Chest Tube Drainage 0 Thora-Vent Left Anterior 0 Chest Other: Voiding Method Toilet # Voids 1 Weight 81.647 kg 81.647 kg Patient is currently calm and comfortable on room air oxygen The patient appeared well nourished and normally developed. Vital signs as documented. Head exam is unremarkable. No scleral icterus or corneal arcus noted. Neck is without jugular venous distension, thyromegaly, or carotid bruits. Carotid upstrokes are brisk bilaterally. Lungs are clear to auscultation and percussion. The patient has a thoravent over the left anterior chest area. Cardiac exam reveals the PMI to be normally sized and situated. Rhythm is regular. First and second heart sounds normal. No murmurs, rubs or gallops. Abdominal exam reveals normal bowel sounds, no masses, no organomegaly and no aortic enlargement. Extremities are nonedematous and both femoral and pedal pulses are normal.Examination of the skin revealed no evidence of significant rashes, suspicious appearing nevi or other concerning lesions.Neurologically, the patient is awake and alert and the patient does not have any focal neurological deficit. Cranial nerves are essentially intact. Results - Diagnostic Findings Chest x-ray: image reviewed Assessment and Plan Plan: Acute idiopathic spontaneous left-sided pneumothorax, persistent, unchanged on follow-up chest x-ray and for that reason the patient was hospitalized and currently has a thoravent in place. There is still ongoing air leak with persistent pneumothorax on the left. The chest tube will be sent to wall suction. History of marijuana use. History of ALLERGIES. Plan Provide the patient incentive spirometer Attach the chest tube to wall suction Daily chest x-rays Hemodynamically stable Smoking cessation counseling We'll follow
--- NOTE | 2022-02-12 09:59 | P.HPIM ---
History of Present Illness H&P Date: 02/12/22 Chief Complaint: Spontaneous pneumothorax This is a 26-year-old male patient of Dr. Manjarrez who presented with concerns of worsening spontaneous pneumothorax. Patient reports he initially presented on 02/07/2022 with chest pain is found to have a pneumothorax. Patient was d ischarged same day and instructed to follow up with pulmonary services. 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 Patient denies any significant medical history reports history of nicotine dependence but not currently smoking but does smoke marijuana daily. Patient presented to the ER where Thora vent was placed for pulmonary services. Pleur-vac currently to wall suction with recommendations to continue for additional 24 hours. Patient does complain of some chest discomfort around the thoravent site. Current vital signs temp 90.1, heart rate 83, respiratory rate 18, blood pressure 130/84 with pulse ox 99% on room air. Laboratory currently pending. Repeat chest x-ray ordered for a.m. Review of Systems Please refer to HPI otherwise unremarkable Past Medical History Additional Past Medical History / Comment(s): pneumothorax History of Any Multi-Drug Resistant Organisms: None Reported Past Surgical History: No Surgical Hx Reported Past Anesthesia/Blood Transfusion Reactions: No Reported Reaction Past Psychological History: No Psychological Hx Reported Smoking Status: Former smoker Past Alcohol Use History: None Reported Past Drug Use History: Marijuana Additional Drug Use History / Comment(s): current everday marijuana smoker - Past Family History Sister(s) Additional Family Medical History / Comment(s): tachycardia Medications and Allergies Home Medications Medication Instructions Recorded Confirmed Type Montelukast [Singulair] 10 mg PO DAILY 02/06/22 02/11/22 History hydrOXYzine HCL [Atarax] 25 mg PO DAILY 02/06/22 02/11/22 History Acetaminophen Tab [Tylenol] 650 mg PO Q4HR PRN tab 02/07/22 02/11/22 Rx Ibuprofen [Motrin] 800 mg PO Q8H PRN #30 tab 02/08/22 02/11/22 Rx Allergies Allergy/AdvReac Type Severity Reaction Status Date / Time No Known Allergies Allergy Verified 02/11/22 19:54 Physical Exam Vitals: Vital Signs Temp Pulse Pulse Resp BP BP Pulse Ox 02/12/22 02:36 98.1 F 73 18 130/84 99 02/12/22 02:01 70 16 121/74 97 02/12/22 01:01 98.6 F 75 16 130/94 96 02/11/22 20:47 97.7 F 61 18 124/82 98 02/11/22 16:05 98.2 F 67 20 138/86 98 Intake and Output 02/11/22 02/12/22 02/12/22 22:59 06:59 14:59 Intake Total 540 Output Total 0 Balance 540 Intake: Oral 540 Output: Chest Tube Drainage 0 Thora-Vent Left Anterior 0 Chest Other: Voiding Method Toilet # Voids 1 Weight 81.647 kg 81.647 kg Head normocephalic Neck supple Lungs left chest wall thora vent Heart regular rate and rhythm S1-S2, no rub or gallop Abdomen is soft nontender nondistended positive bowel sounds no hepatosplenomegaly Extremities no edema Neuro alert and orientated to 3 Thrombosis Risk Factor Assmnt - Choose All That Apply Any of the Below Risk Factors Present?: No Other Risk Factors: No Other congenital or acquired thrombophilia - If yes, enter type in comment: No Thrombosis Risk Factor Assessment Level: Very Low Risk Assessment and Plan Assessment: 1. spontaneous pneumothorax. s/p Thoravent 2. history of nicotine dependence 3. marijuana use s/p thoravent placement labwork ordered repeat chest xray ordered for am
[2022-02-12] MEDS: MONTELUKAST 10 MG TAB PO SCH (10:03)
[2022-02-12 11:03] LABS: Basophils # (A) 0.1 k/uL (0-0.2); Basophils % (A) 1 %; Eosinophils # (A) 0.2 k/uL (0-0.7); Eosinophils % (A) 4 %; HCT 45.2 % (39.0-53.0); HGB 16.1 gm/dL (13.0-17.5); Lymphocytes # (A) 1.1 k/uL (1.0-4.8); Lymphocytes % (A) 19 %; MCH 31.2 pg (25.0-35.0); MCHC 35.6 g/dL (31.0-37.0); MCV 87.7 fL (80.0-100.0); Mean Platelet Volume 8.2; Monocytes # (A) 0.5 k/uL (0-1.0); Monocytes % (A) 9 %; Neutrophils % (A) 66 %; Platelet Count 178 k/uL (150-450); RBC 5.16 m/uL (4.30-5.90); RDW 11.8 % (11.5-15.5)
[2022-02-12 11:15] LABS: ALT 23 U/L (4-49); AST 19 U/L (17-59); African American GFR (CKD) >90 (>60 ml/min/1.73 sqM); Albumin 4.2 g/dL (3.5-5.0); Alkaline Phosphatase 39 U/L (38-126); Anion Gap 5 mmol/L; Blood Urea Nitrogen 24 mg/dL (9-20); Calcium 8.6 mg/dL (8.4-10.2); Carbon Dioxide 29 mmol/L (22-30); Chloride 105 mmol/L (98-107); Glucose 99 mg/dL (74-99); Non-African American GFR(CKD) >90 (>60 ml/min/1.73 sqM); Potassium 4.2 mmol/L (3.5-5.1); Sodium 139 mmol/L (137-145); Total Bilirubin 0.7 mg/dL (0.2-1.3)
[2022-02-12] MEDS: KETOROLAC 15 MG/ML 1 ML VIAL IVP PRN ×2 (12:24→17:58)
--- NOTE | 2022-02-13 07:44 | XR ---
EXAMINATION TYPE: XR chest 1V portable DATE OF EXAM: 02/13/2022 7:37 AM COMPARISON: Chest radiographs from 02/12/2022 TECHNIQUE: XR chest 1V portable Portable AP radiograph of the chest. CLINICAL INDICATION:Male, 26 years old with history of left pneumothorax; FINDINGS: Lungs/Pleura: No pleural effusion or focal consolidation. Left chest tube is redemonstrated with no s izable pneumothorax identified. Pulmonary vascularity: Unremarkable. Heart/mediastinum: Cardiomediastinal silhouette is unremarkable. Musculoskeletal: No acute osseous pathology. IMPRESSION: Left chest tube is redemonstrated with no sizable pneumothorax identified.
[2022-02-13] MEDS: MONTELUKAST 10 MG TAB PO SCH (08:52)
[2022-02-13] MEDS: HYDROcodone/APAP 5-325MG 1 EACH TAB PO PRN ×2 (08:54→18:26)
--- NOTE | 2022-02-13 09:40 | P.PN ---
Subjective Progress Note Date: 02/13/22 This is a 26-year-old male patient of Dr. Manjarrez who presented with concerns of worsening spontaneous pneumothorax. Patient reports he initially presented on 02/07/2022 with chest pain is found to have a pneumothorax. Patient was discharged same day and instructed to follow up with pulmonary services. Patient reports he presented to intern [employer] Dr. Martin was instructed to come the ER due to unchanged pneumothorax. Patient denies any significant medical history reports history of nicotine dependence but not currently smoking but does smoke marijuana daily. Patient presented to the ER where Thora vent was placed for pulmonary services. Pleur-vac currently to wall suction with recommendations to continue for additional 24 hours. Patient does complain of some chest discomfort around the thoravent site. Current vital signs temp 90.1, heart rate 83, respiratory rate 18, blood pressure 130/84 with pulse ox 99% on room air. Laboratory currently pending. Repeat chest x-ray ordered for a.m. On 02/13/2022 patient is alert and oriented 3. Patient reports some improvement with chest discomfort and shortness of breath. Repeat chest x-ray was completed this a.m. showing left chest tube is redemonstrated with no sizable pneumothorax identified. Awaiting further recommendations per pulmonary services. Current vital signs temp 97.7, heart rate 52, respiratory rate 14, blood pressure 108/54 patient satting 98% on room air Objective - Vital Signs Vital signs: Vital Signs Temp 98.5 F 02/13/22 07:35 Pulse 50 L 02/13/22 07:35 Resp 16 02/13/22 07:35 BP 127/79 02/13/22 07:35 Pulse Ox 100 02/13/22 07:35 FiO2 Intake & Output 02/12/22 02/13/22 02/13/22 18:59 06:59 18:59 Output Total 0 200 0 Balance 0 -200 0 Output: Chest Tube Drainage 0 0 0 Thora-Vent Left Anterior 0 0 0 Chest Urine 200 Other: Voiding Method Toilet Toilet Urinal Urinal # Voids 1 1 - Exam Head normocephalic Neck supple Lungs left chest wall thora vent Heart regular rate and rhythm S1-S2, no rub or gallop Abdomen is soft nontender nondistended positive bowel sounds no hepatosplenomegaly Extremities no edema Neuro alert and orientated to 3 - Labs CBC & Chem 7: 02/12/22 10:13 02/12/22 10:13 Labs: Abnormal Lab Results - Last 24 Hours (Table) 02/12/22 Range/Units 10:13 BUN 24 H (9-20) mg/dL Assessment and Plan Assessment: 1. spontaneous pneumothorax. s/p Thoravent 2. history of nicotine dependence 3. marijuana use s/p thoravent placement labwork ordered repeat chest xray ordered for am
--- NOTE | 2022-02-13 15:34 | P.PN ---
Subjective Progress Note Date: 02/13/22 On 02/13/2022, the patient is a complete asymptomatic. Minimal aspiration of the pneumothorax was done yesterday. Subsequently, the patient was attached to wall suction. On today's evaluation, there is no evidence of any air leak. The patient's chest x-ray shows full expansion of the left lung. The catheter itself was plugged and a repeat chest x-ray done tomorrow. Hemodynamically stable. Objective - Vital Signs Vital signs: Vital Signs Temp 98.3 F 02/13/22 13:20 Pulse 60 02/13/22 13:20 Resp 18 02/13/22 13:20 BP 117/68 02/13/22 13:20 Pulse Ox 100 02/13/22 13:20 FiO2 Intake & Output 02/12/22 02/13/22 02/13/22 18:59 06:59 18:59 Intake Total 180 Output Total 0 200 0 Balance 0 -200 180 Intake: Oral 180 Output: Chest Tube Drainage 0 0 0 Thora-Vent Left Anterior 0 0 0 Chest Urine 200 Other: Voiding Method Toilet Toilet Toilet Urinal Urinal Urinal # Voids 1 1 - Exam The patient appeared well nourished and normally developed. Vital signs as documented. Head exam is unremarkable. No scleral icterus or corneal arcus noted. Neck is without jugular venous distension, thyromegaly, or carotid bruits. Carotid upstrokes are brisk bilaterally. Lungs are clear to auscultation and percussion. Cardiac exam reveals the PMI to be normally sized and situated. Rhythm is regular. First and second heart sounds normal. No murmurs, rubs or gallops. Abdominal exam reveals normal bowel sounds, no masses, no organomegaly and no aortic enlargement. Extremities are nonedematous and both femoral and pedal pulses are normal. - Labs CBC & Chem 7: 02/12/22 10:13 02/12/22 10:13 Assessment and Plan Plan: Acute idiopathic spontaneous left-sided pneumothorax, persistent, unchanged on follow-up chest x-ray and for that reason the patient was hospitalized and currently has a thoravent in place. There is still ongoing air leak with persistent pneumothorax on the left. The chest tube will be sent to wall suction. History of marijuana use. History of ALLERGIES. Plan No evidence of pneumothorax on today's chest x-ray Discontinue wall suction and The catheter Repeat chest x-ray in the morning We will do That if there is no evidence of pneumothorax in a.m.
[2022-02-14 04:12] VITALS: RESP 16
--- NOTE | 2022-02-14 07:21 | XR ---
EXAMINATION TYPE: XR chest 1V portable DATE OF EXAM: 02/14/2022 CLINICAL HISTORY: Difficulty breathing and pneumothorax progress study. TECHNIQUE: Single AP portable upright view of the chest is obtained. COMPARISON: Chest x-ray from one day earlier and older studies FINDINGS: Overlying left-sided chest tube with tiny left apical pneumothorax is redemonstrated. Lung s remain clear. Cardiac silhouette size stable within normal limits. Osseous structures are intact. IMPRESSION: Left-sided chest tube with tiny left apical pneumothorax in retrospect unchanged from one day earlier.
[2022-02-14] MEDS: MONTELUKAST 10 MG TAB PO SCH (08:29)
[2022-02-14] MEDS: HYDROcodone/APAP 5-325MG 1 EACH TAB PO PRN (08:29)
--- NOTE | 2022-02-14 12:18 | XR ---
EXAMINATION TYPE: XR chest 1V portable DATE OF EXAM: 02/14/2022 CLINICAL HISTORY: Thora vent catheter removal. TECHNIQUE: Single AP portable frontal view of the chest is obtained. COMPARISON: Chest x-ray from earlier today FINDINGS: Stable or slightly less prominent tiny left apical pneumothorax after chest tube removal. Lungs remain clear. Cardiac silhouette size stable and within normal limits. Osseous structures are i ntact. IMPRESSION: As above.
[2022-02-14 12:58] VITALS: BP 117/77; PULSE 52; TEMP 97.5
--- NOTE | 2022-02-14 14:03 | P.PN ---
Subjective Progress Note Date: 02/14/2202/14 2022, the catheter was capped and the morning chest x-ray showed a very tiny left apical pneumothorax. Based on that, the catheter was removed and the repeat chest x-ray was done known time showed adequate expansion of the left lung and a very tiny left apical pneumothorax. The patient is hemodynamically stable. The patient has no specific complaints. He is doing well. All of the chest x-rays were reviewed on this patient. Objective - Vital Signs Vital signs: Vital Signs Temp 97.5 F L 02/14/22 12:27 Pulse 52 L 02/14/22 12:27 Resp 16 02/14/22 12:27 BP 117/77 02/14/22 12:27 Pulse Ox 99 02/14/22 12:27 FiO2 Intake & Output 02/13/22 02/14/22 02/14/22 18:59 06:59 18:59 Intake Total 420 180 Output Total 0 Balance 420 180 Intake: Oral 420 180 Output: Chest Tube Drainage 0 Thora-Vent Left Anterior 0 Chest Other: Voiding Method Toilet Toilet Toilet Urinal # Voids 2 1 - Exam The patient appeared well nourished and normally developed. Vital signs as documented. Head exam is unremarkable. No scleral icterus or corneal arcus noted. Neck is without jugular venous distension, thyromegaly, or carotid bruits. Carotid upstrokes are brisk bilaterally. Lungs are clear to auscultation and percussion. Cardiac exam reveals the PMI to be normally sized and situated. Rhythm is regular. First and second heart sounds normal. No murmurs, rubs or gallops. Abdominal exam reveals normal bowel sounds, no masses, no organomegaly and no aortic enlargement. Extremities are nonedematous and both femoral and pedal pulses are normal. - Labs CBC & Chem 7: 02/12/22 10:13 02/12/22 10:13 Assessment and Plan Plan: Acute idiopathic spontaneous left-sided pneumothorax, persistent, unchanged on follow-up chest x-ray and for that reason the patient was hospitalized and currently has a thoravent is removed and the repeat chest x-ray showed no evidence of any pneumothorax or a very tiny left apical pneumothorax History of marijuana use. History of ALLERGIES. Plan Discharge home to be followed up on outpatient basis. The patient was reassured.
--- NOTE | 2022-02-14 15:09 | P.DS ---
Providers Date of admission: 02/12/22 00:38 Expected date of discharge: 02/14/22 Attending physician: Jazmyn Murphy Consults: 02/12/22 00:38 Consult Physician Routine Consulting Provider: John Martin Reason/Comments: Spontaneous pneumo, s/p Thoravent Do you want consulting provider notified?: Yes, Notify in am Primary care physician: Dayana Manjarrez Hospital Course: Diagnosis on discharge: 1. spontaneous pneumothorax. s/p Thoravent 2. history of nicotine dependence 3. marijuana use Hospital course: This is a 26-year-old male patient of Dr. Manjarrez who presented with concerns of worsening spontaneous pneumothorax. Patient reports he initially presented on 02/07/2022 with chest pain is found to have a pneumothorax. Patient was discharged same day and instructed to follow up with pulmonary services. 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 Patient denies any significant medical history reports history of nicotine dependence but not currently smoking but does smoke marijuana daily. Patient presented to the ER where Thora vent was placed for pulmonary services. Pleur-vac currently to wall suction with recommendations to continue for additional 24 hours. Patient does complain of some chest discomfort around the thoravent site. Current vital signs temp 90.1, heart rate 83, respiratory rate 18, blood pressure 130/84 with pulse ox 99% on room air. Laboratory currently pending. Repeat chest x-ray ordered for a.m. On 02/13/2022 patient is alert and oriented 3. Patient reports some improvement with chest discomfort and shortness of breath. Repeat chest x-ray was completed this a.m. showing left chest tube is redemonstrated with no sizable pneumothorax identified. Awaiting further recommendations per pulmonary services. Current vital signs temp 97.7, heart rate 52, respiratory rate 14, blood pressure 108/54 patient satting 98% on room air On 02/14/2022 patient was seen and examined on the telemetry floor he is alert and oriented 3 in no apparent distress he was seen by pulmonary and his chest tube was removed repeat x-ray did not reveal any recurrence of pneumothorax patient was evaluated by Dr. Mujica and was cleared for discharge plan is to discharge home today continue with same medications as prior to admission follow-up with pulmonary in the next 3-4 days. Patient was counseled in length to avoid smoking. Patient Condition at Discharge: Stable Plan - Discharge Summary Discharge Rx Participant: No New Discharge Prescriptions: Continue hydrOXYzine HCL [Atarax] 25 mg PO DAILY Montelukast [Singulair] 10 mg PO DAILY Acetaminophen Tab [Tylenol] 650 mg PO Q4HR PRN tab PRN Reason: Mild Pain Ibuprofen [Motrin] 800 mg PO Q8H PRN #30 tab PRN Reason: Pain Discharge Medication List Montelukast [Singulair] 10 mg PO DAILY 02/06/22 [History] hydrOXYzine HCL [Atarax] 25 mg PO DAILY 02/06/22 [History] Acetaminophen Tab [Tylenol] 650 mg PO Q4HR PRN tab 02/07/22 [Rx] Ibuprofen [Motrin] 800 mg PO Q8H PRN #30 tab 02/08/22 [Rx] Follow up Appointment(s)/Referral(s): Dayana Manjarrez MD [Primary Care Provider] - 1-2 days Patient Instructions/Handouts: Spontaneous Pneumothorax (DC)
== END 2022-02-14 16:32 | disposition home or self-care (01) | DRG 201 ==
LOC: EC 15:44 → 1SOBS 02-12 00:38 → 5NMEDONC 02-12 19:19
PROVIDERS: ADMIT Internal Medicine; ATTEND Internal Medicine
PROC: 0W9B30Z Drainage of Left Pleural Cavity with Drainage Device, Percutaneous Approach (ICD-10-PCS; principal; 2022-02-12)
DX: J93.83 Other pneumothorax (principal); Z66 Do not resuscitate; F12.90 Cannabis use, unspecified, uncomplicated; F17.210 Nicotine dependence, cigarettes, uncomplicated; Z79.899 Other long term (current) drug therapy
CPT/HCPCS: 32551; 71045; 71046; 80053; 85025; 96374; 99285

== ENCOUNTER 2022-02-27 19:44 | Emergency (ER) | payer OTHER ==
[2022-02-27 20:01] VITALS: RESP 16; TEMP 97.9
--- NOTE | 2022-02-27 20:14 | ED ---
General Adult HPI - General Chief complaint: Shortness of Breath Stated complaint: DANNY, chest pain Time Seen by Provider: 02/27/22 19:46 Source: patient Mode of arrival: EMS Limitations: no limitations - History of Present Illness Initial comments: This is a 26-year-old male with past medical history including previous spontaneous pneumothorax presented to the emergency department for left-sided chest pain. The patient was admitted to the hospital 3 weeks ago for a spontaneous pneumothorax with a Thoravent and was discharged home in stable condition. The patient stated that he has been having a symptom free 3 weeks but noted that when he was at work today started to experience discomfort on the left side of his chest. The patient denied any shortness of breath however. The patient on evaluation was resting in bed comfortably without any acute distress. The patient denied any current chest pain on my evaluation. The patient denied any nausea, vomiting, fevers and chills. - Related Data Home Medications Medication Instructions Recorded Confirmed Montelukast [Singulair] 10 mg PO DAILY 02/06/22 02/11/22 hydrOXYzine HCL [Atarax] 25 mg PO DAILY 02/06/22 02/11/22 Previous Rx's Medication Instructions Recorded Acetaminophen Tab [Tylenol] 650 mg PO Q4HR PRN tab 02/07/22 Ibuprofen [Motrin] 800 mg PO Q8H PRN #30 tab 02/08/22 Allergies Allergy/AdvReac Type Severity Reaction Status Date / Time No Known Allergies Allergy Verified 02/27/22 19:55 Review of Systems ROS Statement: Those systems with pertinent positive or pertinent negative responses have been documented in the HPI. ROS Other: All systems not noted in ROS Statement are negative. Past Medical History Additional Past Medical History / Comment(s): pneumothorax, tachycardia History of Any Multi-Drug Resistant Organisms: None Reported Past Surgical History: No Surgical Hx Reported Past Anesthesia/Blood Transfusion Reactions: No Reported Reaction Past Psychological History: No Psychological Hx Reported Smoking Status: Former smoker Past Alcohol Use History: None Reported Past Drug Use History: Marijuana - Past Family History Sister(s) Additional Family Medical History / Comment(s): tachycardia General Exam Limitations: no limitations General appearance: alert, in no apparent distress Head exam: Present: atraumatic, normocephalic, normal inspection Eye exam: Present: normal appearance, PERRL Pupils: Present: normal accommodation ENT exam: Present: normal exam, normal oropharynx, mucous membranes moist Neck exam: Present: normal inspection, full ROM Respiratory exam: Present: normal lung sounds bilaterally Cardiovascular Exam: Present: regular rate, normal rhythm, normal heart sounds GI/Abdominal exam: Present: soft, normal bowel sounds Extremities exam: Present: normal inspection, full ROM Back exam: Present: normal inspection, full ROM Neurological exam: Present: alert, oriented X3, CN II-XII intact Psychiatric exam: Present: normal affect, normal mood Skin exam: Present: warm, dry Course Vital Signs 02/27/22 19:56 Temperature 97.9 F Pulse Rate 64 Respiratory 16 Rate Blood Pressure 120/79 O2 Sat by Pulse 99 Oximetry EKG Findings - EKG Comments: EKG Findings:: An EKG was obtained and was interpreted by myself showing a rate of 58, TN interval 138, QRS duration of 89 and QTC of 404. This EKG showed a sinus bradycardia with no ST segment elevation or depression noted. Medical Decision Making - Medical Decision Making Was pt. sent in by a medical professional or institution (, PA, LAUNDRY ROUTE DRIVER, urgent care, hospital, or halfway...) When possible be specific @ -No Did you speak to anyone other than the patient for history (EMS, parent, family, police, friend...)? What history was obtained from this source @ -Yes, EMS Did you review nursing and triage notes (agree or disagree)? Why? @ -I reviewed and agree with nursing and triage notes Were old charts reviewed (outside hosp., previous admission, EMS record, old EKG, old radiological studies, urgent care reports/EKG's, halfway records)? Report findings @ -No old charts were reviewed Differential Diagnosis (chest pain, altered mental status, abdominal pain women, abdominal pain men, vaginal bleeding, weakness, fever, dyspnea, syncope, headache, dizziness, GI bleed, back pain, seizure, CVA, palpatations, mental health)? @ -Acute coronary syndrome, pneumothorax, pneumonia EKG interpreted by me (3pts min.). @ -As above X-rays interpreted by me (1pt min.). @ -X-ray was obtained and was interpreted by myself showing no acute process. CT interpreted by me (1pt min.). @ -None done U/S interpreted by me (1pt. min.). @ -None done What testing was considered but not performed or refused? (CT, X-rays, U/S, labs)? Why? @ -None What meds were considered but not given or refused? Why? @ -None Did you discuss the management of the patient with other professionals (professionals i.e. , PA, LAUNDRY ROUTE DRIVER, lab, RT, psych nurse, social sciences department chair, cleaner and presser, teacher, military source operations officer, case operator)? Give summary @ -No Was smoking cessation discussed for >3mins.? @ -No Was critical care preformed (if so, how long)? @ -No Were there social determinants of health that impacted care today? How? (Homelessness, low income, unemployed, alcoholism, drug addiction, transportation, low edu. Level, literacy, decrease access to med. care, nursing home, rehab)? @ -No Was there de-escalation of care discussed even if they declined (Discuss DNR or withdrawal of care, Hospice)? DNR status @ -No What co-morbidities impacted this encounter? (DM, HTN, Smoking, COPD, CAD, Cancer, CVA, ARF, Chemo, Hep., AIDS, mental health diagnosis, sleep apnea, morbid obesity)? @ -Previous pneumothoraces Was patient admitted / discharged? Hospital course, mention meds given and route, prescriptions, significant lab abnormalities, going to OR and other pertinent info. @ -The patient was seen and evaluated emergency department. Physical exam, the patient was resting in bed without any acute distress. Vital signs were stab le. All laboratory workup was negative. The patient did not have a pneumothorax at this time and was stable for discharge. The patient was advised to follow-up with his primary care physician and set designer for further workup and evaluation. The patient was agreeable to this and was pleased with the results and was ready to be discharged home. The patient did agree to this and all his questions were answered. The patient was discharged home in stable condition. Undiagnosed new problem with uncertain prognosis? @ -No Drug Therapy requiring intensive monitoring for toxicity (Heparin, Nitro, Insulin, Cardizem)? @ -No Were any procedures done? @ -No Diagnosis/symptom? @ -Chest pain, NOS Acute, or Chronic, or Acute on Chronic? @ -Acute Uncomplicated (without systemic symptoms) or Complicated (systemic symptoms)? @ -Uncomplicated Side effects of treatment? @ -No Exacerbation, Progression, or Severe Exacerbation? @ -No Poses a threat to life or bodily function? How? (Chest pain, [place], [place], pneumonia, PE, COPD, DKA, ARF, appy, cholecystitis, CVA, Diverticulitis, Homicidal, Suicidal, threat to staff... and all critical care pts) @ -No - Lab Data Result diagrams: 02/27/22 20:10 02/27/22 20:10 Lab Results 02/27/22 02/27/22 Range/Units 20:10 20:10 WBC 13.4 H (3.8-10.6) k/uL RBC 5.04 (4.30-5.90) m/uL Hgb 15.6 (13.0-17.5) gm/dL Hct 43.6 (39.0-53.0) % MCV 86.5 (80.0-100.0) fL MCH 31.0 (25.0-35.0) pg MCHC 35.8 (31.0-37.0) g/dL RDW 12.4 (11.5-15.5) % Plt Count 207 (150-450) k/uL MPV 7.8 Neutrophils % 83 % Lymphocytes % 10 % Monocytes % 5 % Eosinophils % 1 % Basophils % 0 % Neutrophils # 11.1 H (1.3-7.7) k/uL Lymphocytes # 1.3 (1.0-4.8) k/uL Monocytes # 0.6 (0-1.0) k/uL Eosinophils # 0.2 (0-0.7) k/uL Basophils # 0.1 (0-0.2) k/uL Hyperchromasia Slight Sodium 137 (137-145) mmol/L Potassium 4.6 (3.5-5.1) mmol/L Chloride 103 (98-107) mmol/L Carbon Dioxide 30 (22-30) mmol/L Anion Gap 4 mmol/L BUN 16 (9-20) mg/dL Creatinine 0.90 (0.66-1.25) mg/dL Est GFR (CKD-EPI)AfAm >90 (>60 ml/min/1.73 sqM) Est GFR (CKD-EPI)NonAf >90 (>60 ml/min/1.73 sqM) Glucose 101 H (74-99) mg/dL Calcium 9.6 (8.4-10.2) mg/dL Magnesium 1.8 (1.6-2.3) mg/dL Total Bilirubin 0.6 (0.2-1.3) mg/dL AST 29 (17-59) U/L ALT 47 (4-49) U/L Alkaline Phosphatase 46 (38-126) U/L Total Protein 7.7 (6.3-8.2) g/dL Albumin 4.7 (3.5-5.0) g/dL Disposition Clinical Impression: Chest pain Disposition: HOME SELF-CARE Condition: Stable Instructions (If sedation given, give patient instructions): Chest Pain (DC) Is patient prescribed a controlled substance at d/c from ED?: No Referrals: Dayana Manjarrez MD [Primary Care Provider] - 1-2 days Time of Disposition: 20:40
[2022-02-27 20:23] LABS: Basophils # (A) 0.1 k/uL (0-0.2); Basophils % (A) 0 %; Eosinophils # (A) 0.2 k/uL (0-0.7); Eosinophils % (A) 1 %; HCT 43.6 % (39.0-53.0); HGB 15.6 gm/dL (13.0-17.5); Hyperchromasia Slight; Lymphocytes # (A) 1.3 k/uL (1.0-4.8); Lymphocytes % (A) 10 %; MCHC 35.8 g/dL (31.0-37.0); MCV 86.5 fL (80.0-100.0); Mean Platelet Volume 7.8; Monocytes # (A) 0.6 k/uL (0-1.0); Monocytes % (A) 5 %; Neutrophils # (A) 11.1 k/uL (1.3-7.7); Neutrophils % (A) 83 %; Platelet Count 207 k/uL (150-450); RBC 5.04 m/uL (4.30-5.90); RDW 12.4 % (11.5-15.5); WBC 13.4 k/uL (3.8-10.6)
[2022-02-27 20:29] LABS: ALT 47 U/L (4-49); AST 29 U/L (17-59); African American GFR (CKD) >90 (>60 ml/min/1.73 sqM); Albumin 4.7 g/dL (3.5-5.0); Alkaline Phosphatase 46 U/L (38-126); Anion Gap 4 mmol/L; Blood Urea Nitrogen 16 mg/dL (9-20); Calcium 9.6 mg/dL (8.4-10.2); Carbon Dioxide 30 mmol/L (22-30); Chloride 103 mmol/L (98-107); Glucose 101 mg/dL (74-99); Magnesium 1.8 mg/dL (1.6-2.3); Non-African American GFR(CKD) >90 (>60 ml/min/1.73 sqM); Potassium 4.6 mmol/L (3.5-5.1); Sodium 137 mmol/L (137-145); Total Bilirubin 0.6 mg/dL (0.2-1.3); Total Protein 7.7 g/dL (6.3-8.2)
--- NOTE | 2022-02-27 20:32 | XR ---
EXAMINATION TYPE: XR chest 2V DATE OF EXAM: 02/27/2022 COMPARISON: 02/14/2022 HISTORY: Chest pain TECHNIQUE: 2 view FINDINGS: Heart and mediastinum are normal. Lungs are clear. Diaphragm is normal. Bony thorax is inta ct. There are chest leads. No pneumothorax. IMPRESSION: Normal chest. No adverse change.
[2022-02-27 20:59] VITALS: BP 126/93; PULSE 65
== END 2022-02-27 20:55 | disposition home or self-care (01) ==
LOC: EC 19:44
DX: R07.89 Other chest pain (principal); F12.90 Cannabis use, unspecified, uncomplicated; Z87.891 Personal history of nicotine dependence
CPT/HCPCS: 36415; 71046; 80053; 83735; 84484; 85025; 93005; 99285

== ENCOUNTER 2022-09-17 12:36 | Day surgery (SDC) | payer OTHER ==
[~2022-09-17 12:36] MED LIST: SODIUM CHLORIDE 0.9% 1,000 ML IV SCH
[2022-09-17] MEDS ORDERED: MIDAZOLAM 2 MG/2 ML VIAL ONE (14:40)
[2022-09-17] MEDS ORDERED: fentaNYL (PF) 50 MCG/ML 2 ML AMP ONE (14:40)
[2022-09-17] MEDS ORDERED: ISOPROTERENOL 250 MCG/1.25 ML SYR IV ONE (14:40)
[2022-09-17] MEDS ORDERED: PROPOFOL 10 MG/ML 20 ML VIAL IV ONE (14:40)
[2022-09-17] MEDS ORDERED: HEPARIN SODIUM,PORCINE 5,000 UNIT/ML 1 ML VIAL ONE (14:40)
[2022-09-17] MEDS ORDERED: ONDANSETRON 4 MG/2 ML VIAL ONE (14:40)
[2022-09-17] MEDS ORDERED: LIDOCAINE 1% INJ 10MG/ML (20 ML MDV) ONE ×2 (14:55→16:02)
[2022-09-17] MEDS ORDERED: LIDOCAINE 1% INJ 10MG/ML (20 ML MDV) SQ ONE ×3 (15:04→16:04)
[2022-09-17] MEDS ORDERED: HEPARIN SODIUM (1,000 UNIT/ML) 1,000 UNIT in SODIUM CHLORIDE 0.9% 1,000 ML IRRIGATION ONE (16:08)
--- NOTE | 2022-09-17 17:12 | P.HPCAR ---
History of Present Illness This is Dr. Carlos dictating an H/P on this patient The patient was interviewed and examined IMPRESSION / ASSESSMENT: Recurrent palpitations of abrupt onset and sometimes terminated with bearing down or coughing Normal 2-D echo and normal stress test Normal TSH PLAN: Diagnoses EP study to look for any inducible arrhythmias and treatment accordingly, possible radiofrequency ablation HPI Patient complains of recurrent palpitations. Not been able to document any of these palpitations underwent Benito. When he was wearing his went to pulmonary did not experience any opticians However he states he has recurrent episodes are becoming more and more frequent and sometimes terminated with bearing down but recently it has become more difficult. These palpitations No syncope ROS: No fever chills or rigors, no cough, phlegm or expectoration, no nausea, vomiting or diarrhea, no hematuria, dysuria, no musculoskeletal complaints, no strokes or seizures, no skin lesions. EXAMINATION: Blood pressure 133/82 mmHg respiratory rate 18 pulse rate 85 afebrile Breath sounds are clear no rhonchi no crackles Heart sounds S1-S2 are normal no murmurs or gallops or rub Abdomen soft nontender Extremities warm REVIEW OF LABS, ECG & MEDICAL DATA TSH 4.4, normal Physical Exam Vitals: Vital Signs Temp Pulse Resp BP Pulse Ox 09/17/22 13:49 98.2 F 85 18 133/82 97 Intake and Output 09/17/22 09/17/22 09/17/22 06:59 14:59 22:59 Intake Total 800 160 Balance 800 160 Intake: IV 800 160 Other: Weight 100.4 kg Past Medical History Additional Past Medical History / Comment(s): pneumothorax, tachycardia See Dr Carlos's H & P History of Any Multi-Drug Resistant Organisms: None Reported Past Surgical History: No Surgical Hx Reported Additional Past Surgical History / Comment(s): chest tube insertion Past Anesthesia/Blood Transfusion Reactions: No Reported Reaction Smoking Status: Former smoker - Past Family History Sister(s) Additional Family Medical History / Comment(s): tachycardia Physical Examination Vital Signs Temp Pulse Resp BP Pulse Ox 09/17/22 13:49 98.2 F 85 18 133/82 97 Intake and Output 09/17/22 09/17/22 09/17/22 06:59 14:59 22:59 Intake Total 800 160 Balance 800 160 Intake: IV 800 160 Other: Weight 100.4 kg Results Current Medications Generic Name Dose Route Start Last Admin Trade Name Freq PRN Reason Stop Dose Admin Sodium Chloride 1,000 mls @ 20 mls/hr 09/17/22 06:01 09/17/22 13:53 Saline 0.9% IV 10/17/22 06:02 800 mls .Q24H SHERRY Administration Intake and Output 09/17/22 09/17/22 09/17/22 06:59 14:59 22:59 Intake Total 800 160 Balance 800 160 Intake: IV 800 160 Other: Weight 100.4 kg Patient Weight 09/18/22 06:59 Weight 100.4 kg
--- NOTE | 2022-09-17 17:18 | P.EPPROC ---
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 Written informed consent was obtained prior to the procedure. Venous sheaths were placed in the right left femoral veins. Diagnostic cath was positioned in the high right atrium, His bundle catheter, RV and coronary sinus Later a long sheath in the mapping and ablation catheter placed A full diagnoses EP study is performed on and off Isuprel Sinus cycle length 690 ms, AL interval 140 ms, QRS 99 and QT 371 ms AH 61 ms and HV 44 ms Sinus node recovery times at 600, 500 and 400 ms were 907, 916 and 850 ms. Corresponding corrected sinus node recovery times are normal AV node Wenckebach block 350 ms Rosa Maria response to Parahisian pacing AV node Wenckebach block less than 400 ms. Jump in the AH interval noted @ 500\370 ms pacing from the lateral wall of the right atrium Atrial ERP 504/230 milliseconds VA ERP 500\330 milliseconds Isuprel started wide open and with straight pacing at 200 ms SVT was induced Tachycardia cycle length 214 1 ms. Short septal times VAAV response Post-pacing interval of 504 ms Isuprel was discontinued. A long sheath was placed along with the mapping and ablation catheter The His bundle area and the coronary sinus os and the tricuspid annulus impacted mapped The slow pathway was mapped RF ablation was performed just outside the coronary sinus os, just anterior to it Code contact force and power between 25-35 W was used. At the successful site 10 seconds of 41 hour was used Junctional rhythm was obtained followed by resumption of sinus rhythm Following that a full EP study is performed. On and off Isuprel AV node Wenckebach block 270 ms. VA Wenckebach block 230 ms AV node ERP 380/less than 210/less than 210 ms There was no evidence for AV node reentry on high-dose Isuprel any further Patient tolerated the procedure well without any acute complications Sheaths were removed Vascular closure device was used and hemostasis was assured
[2022-09-17] MEDS ORDERED: ACETAMINOPHEN IV (For NPO) 1,000 MG in EMPTY BAG 1 BAG IVPB ONE (17:22)
[2022-09-17] MEDS ORDERED: ACETAMINOPHEN TAB 325 MG TAB PO PRN (17:22)
--- NOTE | 2022-09-17 17:22 | P.PRLE ---
RE: Khurram Hernández Dear Annamaria Khurram underwent a diagnostic EP study for recurrent palpitations that would sometimes terminate with bearing down or coughing. Unfortunately we had no documentation of the arrhythmia since he did not experience any palpitations while he wore the event monitor. 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
[2022-09-18] MEDS ORDERED: LORATADINE 10 MG TAB PO SCH (09:00)
[2022-09-18] MEDS ORDERED: MONTELUKAST 10 MG TAB PO SCH (09:00)
[2022-09-18] MEDS ORDERED: FLUTICASONE 50MCG/SPRAY NASAL 16GM EA NOSTRIL SCH (09:00)
[2022-09-18] MEDS ORDERED: WELLBUTRIN 200 MG PO SCH (09:00)
[2022-09-18] MEDS ORDERED: ESCITALOPRAM 10 MG TAB PO SCH (09:00)
[2022-09-18] MEDS ORDERED: hydrOXYzine HCL 25 MG TAB PO SCH (09:00)
--- NOTE | 2022-09-18 09:27 | P.DS ---
Providers Attending physician: Guilherme Carlos Primary care physician: Dayana Manjarrez Assessment: The patient is a 26-year-old male who is currently admitted after undergoing EP procedure with Dr. Carlos on 09/17/2022. The patient was found to have typical AV node reentry with RVR, greater than 200 bpm induced on Isuprel. RF ablation was performed just outside the coronary sinus os. The patient did well overnight. No complaints. No chest pain or chest pressure. GENERAL: Well-appearing, well-nourished and in no acute distress. NECK: Supple without JVD or thyromegaly. LUNGS: Breath sounds clear to auscultation bilaterally. Respiration equal and unlabored. No wheezes, rales or rhonchi. HEART: Regular rate and rhythm without murmurs, rubs or gallops. S1 and S2 heard. EXTREMITIES: Normal range of motion, no edema. No clubbing or cyanosis. Peripheral pulses intact and strong. No bruising or bleeding from groin sites TELEMETRY: Sinus rhythm overnight IMPRESSION: AV node reentry with RVR Status post ablation PLAN: Patient may be discharged Outpatient follow-up with Dr. Carlos/nurse practitioner in 1-2 weeks I am dictating on behalf of Dr Guilherme Carlos's history/physical and assessment/plan. Plan - Discharge Summary Discharge Rx Participant: No New Discharge Prescriptions: No Action Loratadine [Claritin] 10 mg PO DAILY hydrOXYzine HCL [Atarax] 25 mg PO DAILY Montelukast [Singulair] 10 mg PO DAILY Acetaminophen Tab [Tylenol] 650 mg PO Q4HR PRN tab PRN Reason: Mild Pain Fluticasone Nasal Brusett [Flonase Nasal Brusett] 2 spray EA NOSTRIL DAILY Escitalopram [Lexapro] 10 mg PO DAILY Wellbutrin(Unk) 200 mg PO DAILY Discharge Medication List Montelukast [Singulair] 10 mg PO DAILY 02/06/22 [History] hydrOXYzine HCL [Atarax] 25 mg PO DAILY 02/06/22 [History] Acetaminophen Tab [Tylenol] 650 mg PO Q4HR PRN tab 02/07/22 [Rx] Escitalopram [Lexapro] 10 mg PO DAILY 09/10/22 [History] Fluticasone Nasal [place] [Flonase Nasal Br[place]] 2 spray EA NOSTRIL DAILY 09/10/22 [History] Loratadine [Claritin] 10 mg PO DAILY 09/10/22 [History] Wellbutrin(Unk) 200 mg PO DAILY 09/10/22 [History] Follow up Appointment(s)/Referral(s): Guilherme Carlos MD [STAFF PHYSICIAN] - 1 Week Activity/Diet/Wound Care/Special Instructions: Post EP study - Ablation instructions 1. Keep access sites dry for 2 days. 2. No heavy lifting or straining for 2 days. 3. Avoid bending the hips repeatedly for 2 days. 4. You may go up and down stairs slowly Call if the following is noted 1. Bleeding, increasing swelling or pain at the access sites. 2. Increasing chest discomfort, especially upon taking a deep breath. 3. Increasing shortness of breath, at rest or with exertion. 4. Undue cough / phlegm 5. Difficulty or pain while swallowing. 6. Pain or change in color in the extremities. 7. Fever, chills, rigors. 8. Increasing headache or neurologic symptoms. 9. Dizziness, fainting, palpitations
[2022-09-18 11:54] VITALS: BP 127/81; PULSE 72; RESP 16; TEMP 98
== END 2022-09-18 11:55 | disposition home or self-care (01) ==
LOC: CATHEP 12:36 → 6NMEDSUR 16:57 → CATHEP 09-18 11:55
PROVIDERS: ATTEND Internal Medicine Clinical Cardiac Electrophysiology
DX: I44.1 Atrioventricular block, second degree (principal); I48.19 Other persistent atrial fibrillation; Z79.899 Other long term (current) drug therapy
CPT/HCPCS: 93623; 93653; 86900; 86901; 84443; 86850; C1894; C1769; C1760; C1730 ×3; C1893; C1732; J2250; J1644 ×2; J2405; J2001; J3010; J0131; J2704

== ENCOUNTER → 2023-05-18 | Outpatient (CLI) | payer OTHER ==
[2023-05-18 16:11] LABS: Immunoglobulin M 61.7 mg/dL (40.0-280.0)
[2023-05-18 16:24] LABS: Basophils # (A) 0.05 X 10*3/uL (0.00-0.10); Eosinophils # (A) 0.17 X 10*3/uL (0.04-0.35); Eosinophils % (A) 3.5 %; HCT 47.7 % (39.6-50.0); Lymphocytes # (A) 1.47 X 10*3/uL (0.90-5.00); Lymphocytes % (A) 30.7 %; MCH 30.4 pg (27.0-32.0); MCHC 33.5 g/dL (32.0-37.0); MCV 90.7 FL (80.0-97.0); Mean Platelet Volume 10.4 FL (9.5-12.2); Monocytes # (A) 0.56 X 10*3/uL (0.20-1.00); Monocytes % (A) 11.7 %; NRBC Per 100 WBC 0 X 10*3/uL (0.00-0.01); Neutrophils # (A) 2.53 X 10*3/uL (1.80-7.70); Neutrophils % (A) 52.9 %; Platelet Count 252 X 10*3/uL (140-440); RBC 5.26 X 10*6/uL (4.40-5.60); RDW 12.2 % (11.5-14.5); WBC 4.79 X 10*3/uL (4.50-10.00)
[2023-05-18 19:47] LABS: Red Top (Bentgrass) IgE 0.15 kU/L
[2023-05-19 14:29] LABS: Alt. alternata IgE Class CLASS 0; Alternaria alternata IgE <0.10 kU/L (<0.10); Asperg. fumagatus IgE <0.10 kU/L (<0.10); Asperg. fumagatus IgE Class CLASS 0; Bermuda Grass IgE <0.10 kU/L (<0.10); Birch(Com.Silvr) IgE <0.10 kU/L (<0.10); Birch(Com.Silvr) IgE Class CLASS 0; Cat Epith & Dander IgE <0.10 kU/L (<0.10); Cat Epith & Dander IgE Class CLASS 0; Clad herbarum IgE <0.10 kU/L (<0.10); Clad herbarum IgE Class CLASS 0; Cockroach IgE <0.10 kU/L (<0.10); Cottonwood IgE <0.10 kU/L (<0.10); Dermato. Pteronyssinus Class CLASS 0/1; Dermato. Pteronyssinus IgE 0.11 kU/L (<0.10); Dermato. farinae IgE 0.12 kU/L (<0.10); Dermato. farinae IgE Class CLASS 0/1; Dog Dander IgE <0.10 kU/L (<0.10); Elm IgE <0.10 kU/L (<0.10); IgE (Allergen) 55.5 IU/mL (<114.0); Maple (Box Elder) IgE <0.10 kU/L (<0.10); Maple (Box Elder) IgE Class CLASS 0; Mountain Cedar IgE <0.10 kU/L (<0.10); Mountain Cedar IgE Class CLASS 0; Mouse Urine IgE Class CLASS 0; Mouse Urine Proteins,IgE <0.10 kU/L (0.10); Nettle IgE <0.10 kU/L (<0.10); Nettle IgE Class CLASS 0; Oak IgE <0.10 kU/L (<0.10); Penicillium chrysogenum IgE <0.10 kU/L (<0.10); Penicillium chrysogenum IgE Cl CLASS 0; Rough Marshelder IgE <0.10 kU/L (<0.10); Rough Marshelder IgE Class CLASS 0; Timothy Grass IgE <0.10 kU/L (<0.10); Timothy Grass IgE Class CLASS 0; White Ash IgE Class CLASS 0
== END | disposition home or self-care (01) ==
LOC: LABWHC1 11:23
PROVIDERS: ATTEND Allergy & Immunology Allergy
DX: J30.89 Other allergic rhinitis (principal); D83.9 Common variable immunodeficiency, unspecified
CPT/HCPCS: 36415; 82784; 82785; 82787; 85025; 86003; 86140